=== PATIENT | female | born 1930 | race Two or more races ===

== ENCOUNTER 2017-01-01 10:49 | Day surgery (SDC) | payer MEDICARE, MEDICAID ==
[~2017-01-01 10:49] MED LIST: ALENDRONATE SOD70 MG ORAL; ARICEPT5 MG ORAL; LISINOPRIL40 MG ORAL; METFORMIN HCL500 M1 ORAL; NEXIUM40 M2 ORAL; OMEPRAZOLE40 M1 ORAL
--- NOTE | 2017-01-01 12:05 | Diagnostic Imaging Report ---
Indications: Left foot pain Technique: 3 views of the left foot Findings: Comparison: None. Soft tissues appear mildly swollen and irregular. No fracture, dislocation, lytic destruction, periosteal reaction, soft tissue gas or foreign body, or other acute changes are demonstrated. Small spurs emanate from the plantar and posterior aspects of the calcaneus. No additional deformity, alignment abnormality, arthritic change, soft tissue calcification, or other chronic changes are demonstrated. IMPRESSION: Mild soft tissue swelling/irregularity, nonspecific No other evidence of acute abnormality Calcaneal enthesophytes
--- NOTE | 2017-01-01 12:06 | Diagnostic Imaging Report ---
Indications: Right foot pain Technique: 3 views of the right foot Findings: Comparison: None. Soft tissues appear mildly swollen and irregular. No fracture, dislocation, lytic destruction, periosteal reaction, soft tissue gas or foreign body, or other acute changes are demonstrated. The second through fifth digital rays demonstrate mild alignment abnormalities. Small spurs emanate from the plantar and posterior aspects of the calcaneus. No additional deformity, alignment abnormality, arthritic change, soft tissue calcification, or other chronic changes are demonstrated. IMPRESSION: Mild soft tissue swelling/irregularity, nonspecific No other evidence of acute abnormality Second through fifth digital right alignment abnormalities, likely chronic Calcaneal enthesophytes
--- NOTE | 2017-01-04 08:48 | Diagnostic Imaging Report ---
Indications: Abdominal pain Technique: Continuous helical CT imaging of the abdomen and pelvis was performed with automatic exposure control following administration of oral and intravenous nonionic iodine contrast, on a Siemens sensation [address] scanner. Axial, coronal, and sagittal images were reconstructed at 5 mm slice thickness. CTDI volume(s): 20 mGy Total DLP: 954 mGy-cm Findings: Comparison: 04/20/2014 Oral contrast has passed throughout the gastrointestinal tract to the level of the rectum. Entire tract remains nondilated. Appendix not identified. Multiple left colonic diverticula. No obvious associated mass/mural thickening, adjacent stranding, extraluminal gas or fluid collections. Again noted are mildly decreased attenuation of liver parenchyma, one centimeters circumscribed low-attenuation exophytic mass lower pole right kidney, scattered arterial mural calcifications without obvious flow-limiting stenosis or occlusion, small calcified nodule in the left lung base, subsegmental atelectasis versus scarring in right lung base, increased interstitial markings in the dependent portions of both lung bases, multilevel disc space narrowing with marginal osteophyte formation in the lumbar and lower thoracic spine, extensive fusion hardware in the lumbar spine, calcified nodules compatible with injection granulomas in the bilateral buttock subcutaneous soft tissues, all unchanged. Gallbladder, pancreas, spleen, adrenal glands, right kidney, unopacified ureters and collapsed urinary bladder, uterus, bilateral adnexal regions, retroperitoneum, mesentery, remainder visualized pelvic anatomy remain unremarkable in appearance. 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
== END 2017-01-01 12:50 | disposition home or self-care (01) ==
LOC: RAD 10:49 → SUR 10:49
DX: R19.00 Intra-abdominal and pelvic swelling, mass and lump, unspecified site (principal); N28.1 Cyst of kidney, acquired; K76.0 Fatty (change of) liver, not elsewhere classified; K57.30 Diverticulosis of large intestine without perforation or abscess without bleeding; M47.895 Other spondylosis, thoracolumbar region; J84.10 Pulmonary fibrosis, unspecified; M79.672 Pain in left foot; M79.671 Pain in right foot; M77.32 Calcaneal spur, left foot; M77.31 Calcaneal spur, right foot
CPT/HCPCS: 74177

== ENCOUNTER 2017-03-02 14:24 | Inpatient (IN) | payer MEDICARE, MEDICAID ==
[~2017-03-02] VITALS: Ht 144.8 cm; Wt 70.8 kg
[2017-03-02] MEDS ORDERED: Morphine Sulfate 4mg/ml Inj IVP ONE ×3 (15:15→18:30)
[2017-03-02 15:52] VITALS: BP 142/74
[2017-03-02] MEDS ORDERED: Norco 10mg/325mg tab ORAL PRN (16:15)
[2017-03-02 16:30] VITALS: BP 144/71
--- NOTE | 2017-03-02 16:45 | Diagnostic Imaging Report ---
Indication: Leg pain Technique: Continuous helical transaxial imaging of the pelvis was obtained from the iliac crest to the pubic symphysis. Coronal 2-D reformats were also obtained. Study obtained in a Siemens sensation [address] Intravenous non-ionic contrast was administered. Total Dose length Product (DLP): [address] Dose Index Volume (CTDIvol): 19 mGy Comparison: None Findings: Due to fracture is identified. The bones are osteopenic. A alignment is normal. Extensive diverticulosis of the colon demonstrated. Uterus noted. Bladder is nondistended. Arterial vascular calcifications are present. Lumbar spine as discussed in a separately dictated lumbar spine CT report. Impression: No acute injury identified. Please refer to the lumbar spine CT report The CT scanner at [facility] is accredited by the [employer] and the scans are performed using dose optimization techniques as appropriate to a performed exam including Automatic Exposure control.
[2017-03-02 16:49] LABS: BASOPHILS % (AUTO) 2.1 % (0.0-2.0); EOSINOPHILS % (AUTO) 0.9 % (0.0-3.0); LYMPHOCYTES % (AUTO) 25.5 % (20.0-45.0); MEAN CORPUSCULAR HGB CONC 34.7 G/DL (32.0-36.0); MEAN CORPUSCULAR VOLUME 89 FL (80-99); MEAN PLATELET VOLUME 7.8 FL (6.5-10.1); MONOCYTES % (AUTO) 5.9 % (1.0-10.0); NEUTROPHILS % (AUTO) 65.6 % (45.0-75.0); PLATELET COUNT 348 K/UL (150-450); RED BLOOD COUNT 5.05 M/UL (4.20-5.40); RED CELL DISTRIBUTION WIDTH 13.8 % (11.6-14.8); WHITE BLOOD COUNT 7.9 K/UL (4.8-10.8)
[2017-03-02 16:58] LABS: ALANINE AMINOTRANSFERASE 5 U/L (3-33); ALBUMIN/GLOBULIN RATIO 1.4 (1.0-2.7); ANION GAP 15 (5-15); ASPARTATE AMINO TRANSFERASE 17 U/L (5-40); CALCIUM 10.3 mg/dL (8.6-10.2); CARBON DIOXIDE 27 mEQ/L (20-30); CHLORIDE 97 mEQ/L (98-107); CREATININE 0.7 mg/dL (0.5-0.9); HEMOLYSIS 6; POTASSIUM 3.9 mEQ/L (3.4-4.9); SODIUM 139 mEQ/L (135-145); TOTAL PROTEIN 7.8 g/dL (6.6-8.7)
[2017-03-02 17:30] VITALS: BP 129/81
--- NOTE | 2017-03-02 18:10 | Emergency Room Report ---
History of Present Illness General Chief Complaint: Lower Back Pain or Injury Source: Significant Other Present Illness HPI 86-year-old female presents ED complaining of back pain x2 weeks. Daughter is at bedside states that patient has history of chronic back pain and has had multiple surgeries to her back. Unsure whether patient sustained any recent trauma. Patient does not recall. Pain is a 10 out of 10, throbbing, radiating down the left leg. Patient states she is unable to bear weight. PMD is Dr. Palomares. No other aggravating or relieving factors. Denies any other associated symptoms Allergies: Coded Allergies: SALICYLATES (Verified Allergy, Mild, 04/16/09) ACETAMINOPHEN (Verified Adverse Reaction, Mild, VOMITING, 03/31/12) ASPIRIN (Verified Adverse Reaction, Mild, STOMACH PAIN, 03/31/12) CODEINE (Verified Adverse Reaction, Mild, VOMITING, 03/31/12) Patient History Past Medical History: DM, HTN Past Surgical History: none Pertinent Family History: none Social History: Denies: alcohol use, drug use, smoking Now: No Immunizations: UTD Reviewed Nursing Documentation: PMH: Agreed, PSxH: Agreed Nursing Documentation-PMH Hx Hypertension: Yes Hx Diabetes: Yes Hx Cancer: No Hx Gastrointestinal Problems: Yes - GASTRITIS Hx Neurological Problems: No Hx Neurologic Surgery: Yes - BACK SURGERY X4 Review of Systems All Other Systems: negative except mentioned in HPI Physical Exam Vital Signs Date Time Temp Pulse Resp B/P Pulse Ox O2 Delivery O2 Flow Rate FiO2 03/02/17 14:52 98.8 92 16 96 Room Air 03/02/17 15:52 142/74 Sp02 EP Interpretation: reviewed, normal General Appearance: no apparent distress, alert, GCS 15, non-toxic Head: normocephalic Eyes: bilateral eye PERRL, bilateral eye normal inspection ENT: normal ENT inspection Neck: normal inspection Respiratory: normal inspection Cardiovascular #1: normal inspection Gastrointestinal: normal inspection Rectal: deferred Genitourinary: no CVA tenderness, vertebral tenderness Musculoskeletal: tender Neurologic: alert, oriented x3, responsive, motor strength/tone normal, sensory intact, speech normal Psychiatric: normal inspection Skin: normal inspection Lymphatic: normal inspection Medical Decision Making Diagnostic Impression: Primary Impression: Intractable low back pain Additional Impression: Gait instability ER Course Hospital Course 86-year-old female presents to ED with back pain, radiating down left leg Differential diagnoses include: SBO, aortic dissection, pyelonephritis, kidney stone, Clinical course Patient placed on stretcher. telemetry monitor. After initial history and physical I ordered labs, IV fluids, UA, pain medication and CT scan Labs - no leukocytosis, Hb/Hct stable. electrolytes ok. CT pelvis -no acute process CT Lspine - extensive DJD, hardware in place Patient given pain medications but still continues to have pain and unable to walk Case discussed with Dr. Palomares and he agreed to accept the patient to his service for further care and support I feel this is a highly complex case requiring extensive working including EKG/ Rhythm strip, Xray/CT/US, Blood/urine lab work, repeat exams while in ED, and administration of strong opiates/narcotics for pain control, admission to hospital or close patient follow up. Diagnosis -intractable back pain, gait instability Patient admitted to floor in serious condition Labs Test 03/02/17 15:56 White Blood Count 7.9 K/UL (4.8-10.8) Red Blood Count 5.05 M/UL (4.20-5.40) Hemoglobin 15.7 G/DL (12.0-16.0) Hematocrit 45.2 % (37.0-47.0) Mean Corpuscular Volume 89 FL (80-99) Mean Corpuscular Hemoglobin 31.0 PG (27.0-31.0) Mean Corpuscular Hemoglobin Concent 34.7 G/DL (32.0-36.0) Red Cell Distribution Width 13.8 % (11.6-14.8) Platelet Count 348 K/UL (150-450) Mean Platelet Volume 7.8 FL (6.5-10.1) Neutrophils (%) (Auto) 65.6 % (45.0-75.0) Lymphocytes (%) (Auto) 25.5 % (20.0-45.0) Monocytes (%) (Auto) 5.9 % (1.0-10.0) Eosinophils (%) (Auto) 0.9 % (0.0-3.0) Basophils (%) (Auto) 2.1 % (0.0-2.0) Sodium Level 139 mEQ/L (135-145) Potassium Level 3.9 mEQ/L (3.4-4.9) Chloride Level 97 mEQ/L (98-107) Carbon Dioxide Level 27 mEQ/L (20-30) Anion Gap 15 (5-15) Blood Urea Nitrogen 17 mg/dL (7-23) Creatinine 0.7 mg/dL (0.5-0.9) Estimat Glomerular Filtration Rate mL/min (>60) Glucose Level 140 mg/dL (74-106) Calcium Level 10.3 mg/dL (8.6-10.2) Total Bilirubin 0.3 mg/dL (0.0-1.2) Aspartate Amino Transf (AST/SGOT) 17 U/L (5-40) Alanine Aminotransferase (ALT/SGPT) 5 U/L (3-33) Alkaline Phosphatase 111 U/L (35-104) Total Protein 7.8 g/dL (6.6-8.7) Albumin 4.6 g/dL (3.5-5.2) Globulin 3.2 g/dL Albumin/Globulin Ratio 1.4 (1.0-2.7) CT/MRI/US Diagnostic Results CT/MRI/US Diagnostic Results #1: Imaging Test Ordered: CT Lspine Impression Bilateral pedicle screws and fusion rods L2-S1. Large anterior vertebral screw at L4-L5 and at L5-S1. Extensive disc disease. No acute fractures CT/MRI/US Diagnostic Results #2: Imaging Test Ordered: CT Pelvis Impression no acute fx. Last Vital Signs Date Time Temp Pulse Resp B/P Pulse Ox O2 Delivery O2 Flow Rate FiO2 03/02/17 17:13 98.8 03/02/17 15:52 69 16 142/74 96 Room Air Status: improved Disposition: ADMITTED INPATIENT Condition: Serious Referrals: JONY PALOMARES (PCP) DORIAN MAURO M.D. Mar 02, 2017 18:10
[2017-03-02 18:15] VITALS: BP 113/67
[2017-03-02] MEDS: Lisinopril 20mg tab ORAL SCH (20:09)
[2017-03-02] MEDS: Heparin 5000 units/ml inj SUBQ SCH (20:14)
[2017-03-02] MEDS: NovoLOG Insulin Flexpen SUBQ SCH (20:15)
[2017-03-03 00:23] VITALS: BP 159/71
[2017-03-03] MEDS: Morphine Sulfate 2mg/ml Inj IVP PRN ×4 (00:36→21:04)
[2017-03-03 04:55] VITALS: BP 158/77
[2017-03-03] MEDS: NovoLOG Insulin Flexpen SUBQ SCH ×4 (05:49→20:53)
[2017-03-03] MEDS: metFORMIN 500mg tab ORAL SCH (08:26)
[2017-03-03] MEDS: Lisinopril 20mg tab ORAL SCH ×2 (08:26→21:04)
[2017-03-03] MEDS: Heparin 5000 units/ml inj SUBQ SCH ×2 (08:27→21:11)
--- NOTE | 2017-03-03 08:47 | Diagnostic Imaging Report ---
Indication: Back pain Technique: Continuous helical transaxial imaging of the lumbar spine was obtained from the lung bases to the pubic symphysis. No IV contrast was administered. Coronal 2-D reformats were also obtained. Study obtained in a Siemens sensation [address] Total Dose length Product (DLP): [address] Dose Index Volume (CTDIvol): 24 mGy Comparison: None Findings: There is some limitation on this examination because of streak artifact from hardware which consists of bilateral pedicle screws and fusion rods which spans L2-S1. In addition there is a large intervertebral screw traversing at L4-5 and L5-S1. There is generalized osteopenia. There is extensive disc disease with vacuum phenomenon involving the upper lumbar and lower thoracic spine. Grafted bone material noted posteriorly. There is no obvious fracture identified with obvious limitations given the degree of osteopenia present in the artifact associated with the hardware. There is no large hematoma identified. Aorta is moderately calcified. Extensive diverticulosis of the colon noted. Impression: No obvious acute injury. Limitations given the artifact from L2-S1 fusion hardware. Degenerative changes as described above. Osteoporosis Atherosclerotic vascular disease Extensive diverticulosis of the visualized colon The CT scanner at [facility] [place] [facility] is accredited by the [employer] and the scans are performed using dose optimization techniques as appropriate to a performed exam including Automatic Exposure control.
[2017-03-03 08:53] VITALS: BP 142/65
[2017-03-03 12:00] VITALS: BP 146/59
[2017-03-03 16:35] VITALS: BP 139/63
--- NOTE | 2017-03-03 18:12 | Consultation ---
Consult Note Consult Note full note dictated Assessment/Plan MRi T and L spine antiviral RX and TITI Conrad Mar 03, 2017 18:12
[2017-03-03] MEDS: Milk of Magnesia 30ml Ud ORAL PRN (18:25)
[2017-03-03 20:00] VITALS: BP 156/72
--- NOTE | 2017-03-03 21:40 | History and Physical Report ---
DATE OF ADMISSION: 03/02/2017 CHIEF COMPLAINT: Intractable back pain. HISTORY OF PLEASANT ILLNESS: The patient is a very pleasant 86-year-old female. She has a history of hypertension, diabetes, obesity, and osteoarthritis. She has a prior history of multiple back surgeries. She presented with complaints of one to two days of intractable back pain. According to the patient, she was well until several days prior to admission. She has had worsening back pain. She denies any trauma. No heavy lifting. No falls. She is normally on [place] for pain control, but the pain was intractable. The patient was unable to ambulate because her pain was uncontrolled. She required IV pain medication in the emergency room and she is now admitted for further evaluation and care. She denies any focal weakness and numbness. She has had no incontinence. She does admit there area some problems with her ambulation, but is unclear whether this is due to the pain or muscular weakness. PAST MEDICAL HISTORY: As above. PAST SURGICAL HISTORY: Includes knee replacement surgery and back surgery. CURRENT MEDICATIONS: Reconciled and reviewed. ALLERGIES: Include Tylenol, codeine, aspirin, and NSAIDs. FAMILY HISTORY: Noncontributory. SOCIAL HISTORY: Negative for tobacco, ethanol, or drugs. REVIEW OF SYSTEMS: General: No fever or chills. HEENT: No headaches or visual changes. Cardiopulmonary: No chest pain or shortness of breath. Gastrointestinal: No nausea or vomiting. Genitourinary: No urgency or frequency. Musculoskeletal: Possible back pain. Neurologic: No evidence of seizures. PHYSICAL EXAMINATION: VITAL SIGNS: Temperature 96, blood pressure 113/67, pulse 74, and respirations 20. GENERAL: The patient is well-developed female in no apparent distress. HEART: Regular rate and rhythm. LUNGS: Lungs are clear. ABDOMEN: Soft, nontender, and nondistended. EXTREMITIES: No clubbing, cyanosis, or edema. The patient's midline lumbar incision that is old. NEUROLOGIC: The patient is nonfocal. LABORATORY AND DIAGNOSTIC DATA: CT scan of the lumbar region shows L2-S1 fusion. CT of the pelvis was unremarkable. ASSESSMENT: 1. This is a pleasant female intractable low back pain. 2. Diabetes. 3. Hypertension. 4. History of diastolic congestive heart failure. PLAN: IV pain control. Upon evaluation. We will continue outpatient cardiac and diabetic regimen, PT/OT. Zachary Wu M.D. DR: PRISCA JOB#: [id number] CC:
[2017-03-04] VITALS (8 sets, daily range): BP systolic 114–175; BP diastolic 52–92
--- NOTE | 2017-03-04 01:15 | Consultation ---
DATE OF CONSULTATION: SPINE SURGICAL CONSULTATION REASON FOR CONSULTATION: Back pain, right lower extremity radiation and left flank pain. HISTORY OF PRESENT ILLNESS: The patient is an 86-year-old woman, well known to myself. She had previously undergone multiple back surgeries resulting in a spinal fusion L2 through S1. The last surgery was approximately nine years ago. Over the course of the last nine years, she has been in relatively stable and good health as it relates to her back, she would have occasional flare ups, however, over the last three weeks, she has had severe onset of pain in her lower back with burning dysesthesias down the right leg. This has been associated with puffiness as well as having broken out in a rash and blisters down the right leg into the right foot. She also experiences pain in the upper mid back with radiation to the left flank. She was admitted to the hospital due to intractable pain. PAST MEDICAL HISTORY: Diabetes, hypertension and obesity. PAST SURGICAL HISTORY: As noted above. MEDICATIONS: The medication reconciliation report in the chart. ALLERGIES: Tylenol, aspirin, codeine and salicylates, unknown reaction type. PHYSICAL EXAMINATION: GENERAL: The patient is elderly woman, obese. She is seated at the edge of the bed. BACK: Examination of the back demonstrates a well-healed incision. There is tenderness at the thoracolumbar junction with hyperesthesias on the left side into the left flank at about the T8 through T12 distribution. Formal range of motion of lumbar spine was not performed. NEUROLOGIC: Motor strength testing was difficult to assess due to pain in the right lower extremity primarily, but not the left. There are well-healed vesicles along the plantar and medial aspect of the right foot consistent with mature shingles. There are two more fresh appearing blistering along the anterior tibia. Reflexes not performed. She does have exquisite hyperesthesias in the right lower extremity in the L5 distribution. LABORATORY AND DIAGNOSTIC DATA: CT of the lumbar spine reviewed demonstrating spinal fusion L2 through S1 performed through a combination of anterior fixation and posterior fixation. Hardware appears to be in good position and fusion is solid. There is vacuum phenomenon at T12-L1, L1-L2 and L2-L3 proximal, this cannot be adequately visualized. DIAGNOSES: 1. Status post prior spinal fusion L2 through S1. 2. Left flank radiculopathy, rule out disc protrusion and/or foraminal stenosis. 3. Proximal adjacent level arthropathy. 4. 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 PLAN: I had a discussion with Dr. Wu. I recommended antiviral as well as Lyrica for pain control. I will also order an MRI of the thoracic and lumbar spine to rule out structural compression of the nerve in the thoracolumbar junction. [facility] Alexey Méndez DR: RADHA JOB#: [id number] CC:
[2017-03-04] MEDS: Morphine Sulfate 2mg/ml Inj IVP PRN ×4 (02:07→18:31)
[2017-03-04] MEDS: NovoLOG Insulin Flexpen SUBQ SCH ×4 (06:20→20:22)
[2017-03-04] MEDS: Lisinopril 20mg tab ORAL SCH ×2 (08:58→20:26)
[2017-03-04] MEDS: metFORMIN 500mg tab ORAL SCH (08:59)
[2017-03-04] MEDS: Heparin 5000 units/ml inj SUBQ SCH ×2 (10:13→20:29)
--- NOTE | 2017-03-04 10:58 | Diagnostic Imaging Report ---
Indications: Chronic back pain, history of multiple lumbar surgeries Technique: Sagittal STIR, sagittal and axial T1 and T2 weighted fast spin echo sequences of the thoracic spine were performed without IV or intra-thecal gadolinium administration. Findings: Comparison: None The T1-2 disc is mildly decreased in height with mild diffuse annular bulge gently indenting the ventral surface of thecal sac. Facet joints and ligaments unremarkable. Spinal canal, lateral recesses and neural foramina caliber. The T2-3 through T8-9 discs are normal in height. Mild anterior annular bulges. No significant posterior margin disease. Facet joints and ligaments unremarkable. Spinal canal, lateral recesses and neural foramina normal caliber. The T9-10 disc is decreased in height with mild diffuse annular bulge centrally indenting the ventral surface of thecal sac. Left facet joints and ligaments mildly hypertrophied, gently indenting the left lateral margin of the thecal sac and contributing to mild narrowing of the left neural foramen. Right facet joints and ligaments unremarkable. Spinal canal, lateral recesses, right neural foramen normal caliber. The T10-11 disc is decreased in height with circumferential annular bulge indenting the ventral surface of thecal sac. Facet joints and ligaments mildly hypertrophied. Approximately 2 x 1 x 1.5 cm hypointense mass occupies obliterates the left lateral recess at this level, extending medially to compress the left lateral margin of the thecal sac, focally abutted and displaced rightward spinal cord, also extending into and obliterating the left neural foramen. This mass appears contiguous with both the intervertebral disc and facet joint. Spinal canal narrowed to 8 mm AP diameter.. Right lateral recess and neural foramen mildly narrowed. The T11-12 disc is decreased in height with circumferential annular bulge and marginal osteophyte formation, indenting the ventral surface of thecal sac. Facet joints mildly diastatic and fluid-filled. Ligaments mildly hypertrophied. Lateral recesses mildly, neural foramina severely narrowed bilaterally. The T12-L1 disc is decreased in formation, indenting the ventral surface of the thecal sac. Facet joints slightly diastatic and fluid-filled. Ligaments mildly hypertrophied. Spinal canal narrowed to 8 mm AP diameter. Lateral recesses and neural foramina moderately narrowed bilaterally. Spinal cord demonstrates normal configuration and signal characteristics. No intra-axial mass or other signal change. Thoracic vertebrae demonstrate normal configuration and signal characteristics, aside from degenerative changes described above. No fracture, lytic destruction, or other acute change demonstrated. Paraspinous soft tissues are unremarkable. IMPRESSION: Multilevel degenerative disc disease, facet and ligamentous hypertrophy as described in detail level by level above. Associated mass obliterating left lateral recess and neural foramen at T10-11. Focal abutment and rightward displacement spinal cord. Whether this represents extruded disc, marked facet/ligamentous hypertrophy, or a combination cannot be differentiated. Moderate spinal stenosis at T10-11, T12-L1 Severe narrowing of bilateral neural foramina at T11-12 Moderate lateral recess and neural foraminal narrowing bilaterally at T12-L1
--- NOTE | 2017-03-04 14:36 | General Progress Note ---
Assessment/Plan Problem List: (1) Gastroenteritis ICD Codes: K52.9 - Gastroenteritis SNOMED: 15916641 (2) Gait instability ICD Codes: R26.81 - Unsteadiness on feet SNOMED: 32115312, 701379477 (3) Intractable low back pain ICD Codes: M54.5 - Low back pain SNOMED: [id number] Status: stable Assessment/Plan spine follow up regarding spine mass. ?malignancy pain rx dvt/stress ulcer prophylaxis id eval regarding shingles d/w dtr ada Subjective ROS Limited/Unobtainable: No Constitutional: Reports: malaise, weakness HEENT: Reports: no symptoms Cardiovascular: Reports: no symptoms Respiratory: Reports: no symptoms Gastrointestinal/Abdominal: Reports: no symptoms Genitourinary: Reports: no symptoms Neurologic/Psychiatric: Reports: no symptoms Endocrine: Reports: no symptoms Hematologic/Lymphatic: Reports: no symptoms Allergies: Coded Allergies: SALICYLATES (Verified Allergy, Mild, 04/16/09) ACETAMINOPHEN (Verified Adverse Reaction, Mild, VOMITING, 03/31/12) ASPIRIN (Verified Adverse Reaction, Mild, STOMACH PAIN, 03/31/12) CODEINE (Verified Adverse Reaction, Mild, VOMITING, 03/31/12) All Systems: reviewed and negative except above Subjective still having severe back pain. on iv morphine. ?mass. no fever or chills. no focal weakness Objective Last 24 Hour Vital Signs Date Time Temp Pulse Resp B/P Pulse Ox O2 Delivery O2 Flow Rate FiO2 03/04/17 12:00 97.8 69 15 140/69 95 Room Air 03/04/17 08:58 114/52 03/04/17 08:00 97.8 69 15 140/69 95 Room Air 03/04/17 06:56 98.2 03/04/17 06:29 78 114/52 03/04/17 05:09 164/70 03/04/17 04:43 98.2 85 20 164/77 92 Room Air 03/04/17 00:50 76 146/92 03/04/17 00:20 97.9 83 21 175/74 92 Room Air 03/03/17 21:04 139/63 03/03/17 20:00 98.1 73 22 156/72 92 Room Air 03/03/17 16:35 97.5 70 18 139/63 96 Room Air Height (Feet): 4 Height (Inches): 9.00 Weight (Pounds): 156 General Appearance: WD/WN, alert Neck: supple Cardiovascular: normal rate, regular rhythm Respiratory/Chest: chest wall non-tender, lungs clear, normal breath sounds, no respiratory distress Abdomen: normal bowel sounds, non tender, soft, no organomegaly, no mass Edema: no edema noted Arm (L), no edema noted Arm (R), no edema noted Leg (L), no edema noted Leg (R), no edema noted Pedal (L), no edema noted Pedal (R), no edema noted Generalized JONY PALOMARES Mar 04, 2017 14:36
--- NOTE | 2017-03-04 17:08 | Orthopedic Spine Progress Note ---
Ortho Spine - Progress Note Subjective Symptoms: improved Additional Comments: R leg and l flank Pain better MRI T spine reviewed-- L T10-11 severe, and L t 11-12 Mod NF stenosis. No sig cord compression Objective Vital Signs: Last 24 Hour Vital Signs Date Time Temp Pulse Resp B/P Pulse Ox O2 Delivery O2 Flow Rate FiO2 03/04/17 16:00 97.8 72 15 142/63 95 Room Air 03/04/17 14:42 97.8 03/04/17 12:00 97.8 69 15 140/69 95 Room Air 03/04/17 08:58 114/52 03/04/17 08:00 97.8 69 15 140/69 95 Room Air 03/04/17 06:29 78 114/52 03/04/17 05:09 164/70 03/04/17 04:43 98.2 85 20 164/77 92 Room Air 03/04/17 00:50 76 146/92 03/04/17 00:20 97.9 83 21 175/74 92 Room Air 03/03/17 21:04 139/63 03/03/17 20:00 98.1 73 22 156/72 92 Room Air Plan Plan: PT, pain management Additional Comments: Obtain L spine MRI consider T10-12 L TSEB cont lyrica/acyclovir TITI MCDOWELL Mar 04, 2017 17:08
[2017-03-04] MEDS: Docusate 250mg cap ORAL SCH (18:21)
[2017-03-04] MEDS: Norco 10mg/325mg tab ORAL PRN (20:25)
[2017-03-05] VITALS: BP 139/54
[2017-03-05] MEDS: Morphine Sulfate 2mg/ml Inj IVP PRN ×4 (03:55→18:21)
[2017-03-05 04:00] VITALS: BP 137/68
--- NOTE | 2017-03-05 04:45 | Consultation ---
DATE OF CONSULTATION: 03/04/2017 INFECTIOUS DISEASE CONSULTATION PRIMARY ATTENDING PHYSICIAN: Zachary Wu M.D. REASON FOR CONSULTATION: Herpes Zoster and shingles. HISTORY OF PRESENT ILLNESS: The patient is an 86-year-old female admitted on 03/02/2017 because of back pain. The patient has lower back pain for a few weeks that is radiating to right lower extremity. She had developed burning pain and rash in the right lower extremity, mainly in inner foot area. that gradually are better. PAST MEDICAL HISTORY: Significant for multiple back surgeries with fusion at L2 through S1, obesity, diabetes mellitus, hypertension, osteoarthritis, osteoporosis, and knee replacement surgery. The patient had colonoscopy and had tubular adenoma that was removed. MEDICATIONS: Alendronate, milk of magnesia, [place], metformin, Percocet, morphine, lisinopril, insulin, and heparin. ALLERGIES: Aspirin, codeine, salicylate, and Tylenol. SOCIAL HISTORY: . Lives with . No history of alcohol, drug abuse, or smoking. REVIEW OF SYSTEMS: No fever. No chills. She does have back pain. No significant pain in the lower extremity. She has good appetite. No urinary symptoms. She can go to bathroom by herself. PHYSICAL EXAMINATION: VITAL SIGNS: Temperature 97.8 degrees, pulse 69, and blood pressure 140/69. GENERAL APPEARANCE: No acute distress. HEART: S1 and S2. Regular. LUNGS: Clear. ABDOMEN: Soft. Obese EXTREMITIES: No edema, vesicular rash in right foot. LABORATORY AND DIAGNOSTIC DATA: Sodium 139, potassium 3.9, chloride 97, bicarbonate 27, BUN 17 and creatinine 0.7. WBC is 7.9, hemoglobin 15.7, hematocrit 45.6, and platelets 348,000. The patient had MRI that showed osteoporosis, multiple level spinal stenosis in thoracic and thoracolumbar area. She has also CT scan that showed diverticulosis. IMPRESSION: 1. Herpes Zoster right lower extremity. 2. The patient has diabetes mellitus. 3. Obesity. 4. Hypertension. 5. Osteoarthritis. 6. Osteoporosis. 7. Spinal stenosis. RECOMMENDATION: We will start on acyclovir. Case was discussed with pharmacist. Waiting for Orthopedic plan for the patient. I thank, Dr. Wu, for involving me in the care of this patient. Jagjit Mari M.D. DR: SINDY JOB#: [id number] CC: MARGARET
[2017-03-05] MEDS: NovoLOG Insulin Flexpen SUBQ SCH ×4 (06:25→21:00)
[2017-03-05] MEDS: Milk of Magnesia 30ml Ud ORAL PRN (06:30)
[2017-03-05 08:00] VITALS: BP 160/62
[2017-03-05] MEDS: metFORMIN 500mg tab ORAL SCH (09:08)
[2017-03-05] MEDS: Lisinopril 20mg tab ORAL SCH ×2 (09:08→21:26)
[2017-03-05] MEDS: Docusate 250mg cap ORAL SCH ×2 (09:08→18:21)
[2017-03-05] MEDS: Heparin 5000 units/ml inj SUBQ SCH ×2 (09:15→21:29)
[2017-03-05 12:00] VITALS: BP 141/64
--- NOTE | 2017-03-05 13:00 | Infectious Diseases Prog Note ---
Assessment/Plan Assessment/Plan A; Herpes zoster Spinal stenosis DM type 2 Obesity P; Continue Acyclovir Subjective ROS Limited/Unobtainable: No Constitutional: Reports: no symptoms HEENT: Reports: no symptoms Cardiovascular: Reports: no symptoms Musculoskeletal: Reports: other - back pain with radiation to right leg, pain Allergies: Coded Allergies: SALICYLATES (Verified Allergy, Mild, 04/16/09) ACETAMINOPHEN (Verified Adverse Reaction, Mild, VOMITING, 03/31/12) ASPIRIN (Verified Adverse Reaction, Mild, STOMACH PAIN, 03/31/12) CODEINE (Verified Adverse Reaction, Mild, VOMITING, 03/31/12) Objective Vital Signs Last 24 Hour Vital Signs Date Time Temp Pulse Resp B/P Pulse Ox O2 Delivery O2 Flow Rate FiO2 03/05/17 12:00 97.7 74 18 141/64 98 Room Air 03/05/17 09:08 160/62 03/05/17 08:00 98.6 90 19 160/62 94 Room Air 03/05/17 04:00 97.7 79 18 137/68 96 Room Air 03/05/17 00:00 97.9 80 18 139/54 94 Room Air 03/04/17 21:24 97.7 03/04/17 20:26 141/55 03/04/17 19:57 97.7 72 18 141/55 96 Room Air 03/04/17 19:01 97.8 03/04/17 16:00 97.8 72 15 142/63 95 Room Air Height (Feet): 4 Height (Inches): 9.00 Weight (Pounds): 156 General Appearance: no acute distress HEENT: mucous membranes moist Respiratory/Chest: lungs clear Cardiovascular: normal rate Abdomen: soft, non tender Extremities: no edema Neurologic/Psychiatric: alert, oriented x 3, responsive Current Medications Medications (Trade) Dose Ordered Sig/Ashlie Route PRN Reason Start Time Stop Time Status Last Admin Dose Admin Acetaminophen/ Hydrocodone Bitart ([place] 10/325) 1 ea Q4H PRN ORAL For Breakthru Pain 03/03/17 15:00 03/10/17 14:59 03/04/17 20:25 Acyclovir (Zovirax) 800 mg FIVE TIMES A DAY ORAL 03/04/17 14:00 04/03/17 13:59 03/05/17 10:21 Alendronate Sodium (Fosamax) 70 mg ONCE A WEEK ORAL 03/08/17 06:30 04/07/17 06:29 Clonidine HCl (Catapres) 0.1 mg Q4H PRN ORAL For High Blood Pressure 03/02/17 22:15 04/01/17 22:14 03/04/17 05:09 Dextrose (Dextrose 50%) STAT PRN IV Hypoglycemia 03/02/17 16:15 04/01/17 16:14 Docusate Sodium (Colace) 250 mg BID ORAL 03/04/17 18:00 04/03/17 17:59 03/05/17 09:08 Heparin Sodium (Porcine) (Heparin 5000 units/ml) 5,000 units EVERY 12 HOURS SUBQ 03/02/17 21:00 04/01/17 20:59 03/05/17 09:15 Insulin Aspart (NovoLOG) BEFORE MEALS AND HS SUBQ 03/02/17 21:00 04/01/17 20:59 03/04/17 12:47 Lisinopril (Prinivil) 40 mg Q12HR ORAL 03/02/17 21:00 04/01/17 20:59 03/05/17 09:08 Magnesium Hydroxide (Mom) 30 ml TID PRN ORAL Constipation 03/03/17 20:00 04/02/17 19:59 03/05/17 06:30 Metformin HCl (Glucophage) 500 mg DAILY ORAL 03/03/17 09:00 04/02/17 08:59 03/05/17 09:08 Morphine Sulfate (Morphine Sulfate) 1 mg Q4H PRN IVP Severe Pain (Pain Scale 7-10) 03/02/17 22:15 03/09/17 22:14 03/05/17 09:08 Oxycodone/ Acetaminophen (Percocet 10/325) 1 tab Q6H PRN ORAL Moderate Pain (Pain Scale 4-6) 03/03/17 01:15 03/10/17 01:14 Pantoprazole (Protonix) 40 mg DAILY ORAL 03/03/17 09:00 04/02/17 08:59 03/05/17 09:08 SUDHIR WOOTEN Mar 05, 2017 13:00
--- NOTE | 2017-03-05 13:30 | Diagnostic Imaging Report ---
Indication: Low back pain, history of multiple lumbar surgeries Technique: Sagittal T1 and T2 fast spin echo, sagittal STIR, axial T1 and T2 fast spin-echo images of the lumbar spine Comparison: Lumbar spine CT dated 03/02/2017 Findings: Again demonstrated is evidence of posterior fusion of L2-S1. There is also a large intervertebral surgical screw fusing the S1, L5, and L4 vertebral bodies. The hardware shows off susceptibility artifact which may obscure pathology. Prior bone grafting is better demonstrated on the prior CT. The bony alignment is normal. To the extent visible, the vertebral body marrow signal is normal. The conus medullaris terminates at the L1 level. At T12-L1, there is generalized circumferential annular bulge. This results in mild narrowing of the spinal canal, which is narrowed to a minimum of 8 mm AP diameter. This also results in mild to moderate compromise the bilateral neural foramina. There is mild degenerative disc narrowing at this level, as well as disc desiccation At L1-L2, there is moderate degenerative disc narrowing. There is generalized circumferential annular bulge. In combination with ligamentum flavum hypertrophy, this results in borderline spinal canal stenosis. The spinal canal is also distorted by mild levoscoliotic deformity at this level. There is moderate narrowing of the bilateral neural foramina, worse on the right. This is better appreciated on recent CT. At L2-3, no significant disc bulge or protrusion or spinal stenosis. The neural foramina are not well limited due to artifacts, there are probably unremarkable and appear unremarkable on CT there is moderate degenerative disc narrowing. At L3-4, the disc space is preserved. No significant distal or protrusion or spinal stenosis. The left foramen appears widely patent. The right neural foramen is not well demonstrated; sagittal images suggest moderate narrowing but appears widely patent on CT. At L4-5, the disc is obscured by artifact from the central prosthesis. No disc bulge or protrusion or spinal stenosis is demonstrated. Artifact also obscures the left neural foramen. The right neural foramen appears to be patent. At L5-S1, there is degenerative disc narrowing. However, the disc is obscured by artifact from the central prosthesis. There is minimal circumferential annular bulge, but no significant disc protrusion or spinal stenosis is evident. The annular bulge may result in mild bilateral neural foraminal compromise. The surrounding soft tissues are unremarkable. Impression: Limited exam, due to artifact from surgical hardware, as described Postsurgical changes, as described. Degenerative changes, as described, resulting in mild spinal stenosis at T12-L1 and L1-L2 Multilevel neural foraminal stenoses, as detailed on a level by level basis above.
[2017-03-05] MEDS: Norco 10mg/325mg tab ORAL PRN (15:53)
--- NOTE | 2017-03-05 15:57 | General Progress Note ---
Assessment/Plan Problem List: (1) Gastroenteritis ICD Codes: K52.9 - Gastroenteritis SNOMED: 76044059 (2) Gait instability ICD Codes: R26.81 - Unsteadiness on feet SNOMED: 19107489, 712413004 (3) Intractable low back pain ICD Codes: M54.5 - Low back pain SNOMED: 02816034478711959 Assessment/Plan nerve block per spine pain rx dvt/stress ulcer prophylaxis id eval regarding shingles acyclovir for shingles rx pt/ot d/w dtr ada Subjective ROS Limited/Unobtainable: No Constitutional: Reports: malaise, weakness HEENT: Reports: no symptoms Cardiovascular: Reports: no symptoms Respiratory: Reports: no symptoms Gastrointestinal/Abdominal: Reports: no symptoms Genitourinary: Reports: no symptoms Neurologic/Psychiatric: Reports: no symptoms Endocrine: Reports: no symptoms Hematologic/Lymphatic: Reports: no symptoms Allergies: Coded Allergies: SALICYLATES (Verified Allergy, Mild, 04/16/09) ACETAMINOPHEN (Verified Adverse Reaction, Mild, VOMITING, 03/31/12) ASPIRIN (Verified Adverse Reaction, Mild, STOMACH PAIN, 03/31/12) CODEINE (Verified Adverse Reaction, Mild, VOMITING, 03/31/12) All Systems: reviewed and negative except above Subjective still having severe back pain. on iv morphine. large herniated disc on mri noted. no fever or chills. no focal weakness. Objective Last 24 Hour Vital Signs Date Time Temp Pulse Resp B/P Pulse Ox O2 Delivery O2 Flow Rate FiO2 03/05/17 12:00 97.7 74 18 141/64 98 Room Air 03/05/17 09:08 160/62 03/05/17 08:00 98.6 90 19 160/62 94 Room Air 03/05/17 04:00 97.7 79 18 137/68 96 Room Air 03/05/17 00:00 97.9 80 18 139/54 94 Room Air 03/04/17 21:24 97.7 03/04/17 20:26 141/55 03/04/17 19:57 97.7 72 18 141/55 96 Room Air 03/04/17 19:01 97.8 03/04/17 16:00 97.8 72 15 142/63 95 Room Air Intake and Output 03/04/17 03/05/17 19:00 07:00 Intake Total 240 ml Balance 240 ml Intake Oral 240 ml # Voids 2 # Bowel Movements 2 2 Height (Feet): 4 Height (Inches): 9.00 Weight (Pounds): 156 Objective General Appearance: WD/WN, alert Neck: supple Cardiovascular: normal rate, regular rhythm Respiratory/Chest: chest wall non-tender, lungs clear, normal breath sounds, no respiratory distress Abdomen: normal bowel sounds, non tender, soft, no organomegaly, no mass Edema: no edema noted Arm (L), no edema noted Arm (R), no edema noted Leg (L), no edema noted Leg (R), no edema noted Pedal (L), no edema noted Pedal (R), no edema noted Generalized JONY PALOMARES Mar 05, 2017 15:57
[2017-03-05 16:00] VITALS: BP 163/63
--- NOTE | 2017-03-05 18:41 | Orthopedic Spine Progress Note ---
Ortho Spine - Progress Note Subjective Symptoms: unchanged Additional Comments: L flank pain, R LE pain due to zoster Objective Vital Signs: Last 24 Hour Vital Signs Date Time Temp Pulse Resp B/P Pulse Ox O2 Delivery O2 Flow Rate FiO2 03/05/17 16:00 97.0 79 19 163/63 96 Room Air 03/05/17 12:00 97.7 74 18 141/64 98 Room Air 03/05/17 09:08 160/62 03/05/17 08:00 98.6 90 19 160/62 94 Room Air 03/05/17 04:00 97.7 79 18 137/68 96 Room Air 03/05/17 00:00 97.9 80 18 139/54 94 Room Air 03/04/17 21:24 97.7 03/04/17 20:26 141/55 03/04/17 19:57 97.7 72 18 141/55 96 Room Air 03/04/17 19:01 97.8 I&O: Intake and Output 03/04/17 03/05/17 19:00 07:00 Intake Total 240 ml Balance 240 ml Intake Oral 240 ml # Voids 2 # Bowel Movements 2 2 Neuro Status: stable Additional Comments: MRI Lspine and Tspine re reviewed Plan Additional Comments: No surgical intervention at this time. pain managmet as outpatient. Consider L T10/11/12 TSEB if pain not adequately controlled TITI MCDOWELL Mar 05, 2017 18:41
[2017-03-05 21:00] VITALS: BP 168/73
[2017-03-06] VITALS: BP 143/64
[2017-03-06] MEDS: Milk of Magnesia 30ml Ud ORAL PRN (00:33)
[2017-03-06] MEDS: Morphine Sulfate 2mg/ml Inj IVP PRN ×4 (00:36→18:29)
[2017-03-06 04:00] VITALS: BP 161/61
[2017-03-06] MEDS: NovoLOG Insulin Flexpen SUBQ SCH ×4 (06:30→21:00)
[2017-03-06 08:03] LABS: ANION GAP 15 (5-15); CALCIUM 9.9 mg/dL (8.6-10.2); CARBON DIOXIDE 26 mEQ/L (20-30); CHLORIDE 97 mEQ/L (98-107); CREATININE 0.6 mg/dL (0.5-0.9); HEMOLYSIS 5; POTASSIUM 4.2 mEQ/L (3.4-4.9); SODIUM 138 mEQ/L (135-145)
--- NOTE | 2017-03-06 08:17 | General Progress Note ---
Assessment/Plan Problem List: (1) Gastroenteritis ICD Codes: K52.9 - Gastroenteritis SNOMED: 32189585 (2) Gait instability ICD Codes: R26.81 - Unsteadiness on feet SNOMED: 57190843, 234934869 (3) Intractable low back pain ICD Codes: M54.5 - Low back pain SNOMED: [id number] Status: stable, progressing Assessment/Plan d/w . states pt declined nerve block but dtr states that she wants it now nerve block per spine- will d/w again pain rx dvt/stress ulcer prophylaxis acyclovir for shingles rx pt/ot d/w dtr ada Subjective ROS Limited/Unobtainable: No Constitutional: Reports: malaise, weakness HEENT: Reports: no symptoms Cardiovascular: Reports: no symptoms Respiratory: Reports: no symptoms Gastrointestinal/Abdominal: Reports: no symptoms Genitourinary: Reports: no symptoms Neurologic/Psychiatric: Reports: pre-existing deficit Endocrine: Reports: no symptoms Allergies: Coded Allergies: SALICYLATES (Verified Allergy, Mild, 04/16/09) ACETAMINOPHEN (Verified Adverse Reaction, Mild, VOMITING, 03/31/12) ASPIRIN (Verified Adverse Reaction, Mild, STOMACH PAIN, 03/31/12) CODEINE (Verified Adverse Reaction, Mild, VOMITING, 03/31/12) All Systems: reviewed and negative except above Subjective still having severe back pain. on iv morphine. large herniated disc on mri noted. no fever or chills. no focal weakness. requiring iv morphine nearly every 4 hours. Objective Last 24 Hour Vital Signs Date Time Temp Pulse Resp B/P Pulse Ox O2 Delivery O2 Flow Rate FiO2 03/06/17 04:40 161/61 03/06/17 04:00 98.2 96 18 161/61 95 Room Air 03/06/17 00:00 98.1 79 18 143/64 96 Room Air 03/05/17 21:26 163/63 03/05/17 21:00 98.1 77 18 168/73 96 Room Air 03/05/17 16:00 97.0 79 19 163/63 96 Room Air 03/05/17 12:00 97.7 74 18 141/64 98 Room Air 03/05/17 09:08 160/62 Laboratory Tests 03/06/17 05:50: Sodium Level [Pending], Potassium Level [Pending], Chloride Level [Pending], Carbon Dioxide Level [Pending], Blood Urea Nitrogen [Pending], Creatinine [ Pending], Estimat Glomerular Filtration Rate [Pending], Glucose Level [Pending] , Calcium Level [Pending] Height (Feet): 4 Height (Inches): 9.00 Weight (Pounds): 156 Objective General Appearance: WD/WN, alert Neck: supple Cardiovascular: normal rate, regular rhythm Respiratory/Chest: chest wall non-tender, lungs clear, normal breath sounds, no respiratory distress Abdomen: normal bowel sounds, non tender, soft, no organomegaly, no mass Edema: no edema noted Arm (L), no edema noted Arm (R), no edema noted Leg (L), no edema noted Leg (R), no edema noted Pedal (L), no edema noted Pedal (R), no edema noted Generalized JONY PALOMARES Mar 06, 2017 08:16
[2017-03-06 08:55] VITALS: BP 144/86
[2017-03-06] MEDS: Docusate 250mg cap ORAL SCH ×2 (09:33→18:29)
[2017-03-06] MEDS: metFORMIN 500mg tab ORAL SCH (09:35)
[2017-03-06] MEDS: Lisinopril 20mg tab ORAL SCH ×2 (09:35→21:06)
[2017-03-06] MEDS: Heparin 5000 units/ml inj SUBQ SCH ×2 (09:36→21:11)
[2017-03-06 12:17] VITALS: BP 110/66
[2017-03-06 16:18] VITALS: BP 128/57
[2017-03-06 20:17] VITALS: BP 152/80
[2017-03-07 00:09] VITALS: BP 146/69
[2017-03-07] MEDS: Norco 10mg/325mg tab ORAL PRN (00:57)
[2017-03-07 03:54] VITALS: BP 133/60
[2017-03-07] MEDS: NovoLOG Insulin Flexpen SUBQ SCH ×4 (06:07→21:21)
--- NOTE | 2017-03-07 08:28 | Infectious Diseases Prog Note ---
Assessment/Plan Assessment/Plan A; Herpes zoster Spinal stenosis DM type 2 Obesity Osteoporosis P; Continue Acyclovir F/U CBC Subjective ROS Limited/Unobtainable: Yes Constitutional: Reports: other - low grade fever yesterday Allergies: Coded Allergies: SALICYLATES (Verified Allergy, Mild, 04/16/09) ACETAMINOPHEN (Verified Adverse Reaction, Mild, VOMITING, 03/31/12) ASPIRIN (Verified Adverse Reaction, Mild, STOMACH PAIN, 03/31/12) CODEINE (Verified Adverse Reaction, Mild, VOMITING, 03/31/12) Objective Vital Signs Last 24 Hour Vital Signs Date Time Temp Pulse Resp B/P Pulse Ox O2 Delivery O2 Flow Rate FiO2 03/07/17 03:54 97.5 85 17 133/60 95 Room Air 03/07/17 01:56 98.2 03/07/17 00:09 98.2 92 18 146/69 96 Room Air 03/06/17 21:06 152/80 03/06/17 20:17 96.6 89 18 152/80 97 Room Air 03/06/17 16:18 97.7 78 20 128/57 96 Room Air 03/06/17 12:17 97.9 96 20 110/66 96 Room Air 03/06/17 10:08 100.6 03/06/17 09:35 161/61 03/06/17 08:55 100.6 101 20 144/86 96 Room Air Height (Feet): 4 Height (Inches): 9.00 Weight (Pounds): 156 General Appearance: no acute distress HEENT: mucous membranes moist Respiratory/Chest: normal breath sounds Cardiovascular: normal rate Abdomen: soft, non tender Extremities: no edema Skin: rash, other - in right foot Neurologic/Psychiatric: other - sleeping Current Medications Medications (Trade) Dose Ordered Sig/Ashlie Route PRN Reason Start Time Stop Time Status Last Admin Dose Admin Acetaminophen/ Hydrocodone Bitart ([place] 10/325) 1 ea Q4H PRN ORAL For Breakthru Pain 03/03/17 15:00 03/10/17 14:59 03/07/17 00:57 Acyclovir (Zovirax) 800 mg FIVE TIMES A DAY ORAL 03/04/17 14:00 04/03/17 13:59 03/07/17 06:27 Alendronate Sodium (Fosamax) 70 mg ONCE A WEEK ORAL 03/08/17 06:30 04/07/17 06:29 Bisacodyl (Dulcolax) 10 mg DAILYPRN PRN RECTAL Constipation 03/05/17 13:30 04/04/17 13:29 03/05/17 14:35 Clonidine HCl (Catapres) 0.1 mg Q4H PRN ORAL For High Blood Pressure 03/02/17 22:15 04/01/17 22:14 03/06/17 04:40 Dextrose (Dextrose 50%) STAT PRN IV Hypoglycemia 03/02/17 16:15 04/01/17 16:14 Docusate Sodium (Colace) 250 mg BID ORAL 03/04/17 18:00 04/03/17 17:59 03/06/17 18:29 Heparin Sodium (Porcine) (Heparin 5000 units/ml) 5,000 units EVERY 12 HOURS SUBQ 03/02/17 21:00 04/01/17 20:59 03/06/17 21:11 Insulin Aspart (NovoLOG) BEFORE MEALS AND HS SUBQ 03/02/17 21:00 04/01/17 20:59 03/07/17 06:07 Lisinopril (Prinivil) 40 mg Q12HR ORAL 03/02/17 21:00 04/01/17 20:59 03/06/17 21:06 Magnesium Hydroxide (Mom) 30 ml TID PRN ORAL Constipation 03/03/17 20:00 04/02/17 19:59 03/06/17 00:33 Metformin HCl (Glucophage) 500 mg DAILY ORAL 03/03/17 09:00 04/02/17 08:59 03/06/17 09:35 Morphine Sulfate (Morphine Sulfate) 1 mg Q4H PRN IVP Severe Pain (Pain Scale 7-10) 03/02/17 22:15 03/09/17 22:14 03/06/17 18:29 Oxycodone/ Acetaminophen (Percocet 10/325) 1 tab Q6H PRN ORAL Moderate Pain (Pain Scale 4-6) 03/03/17 01:15 03/10/17 01:14 Pantoprazole (Protonix) 40 mg DAILY ORAL 03/03/17 09:00 04/02/17 08:59 03/06/17 09:35 SUDHIR WOOTEN Mar 07, 2017 08:28
[2017-03-07 08:30] VITALS: BP 146/61
[2017-03-07] MEDS: Docusate 250mg cap ORAL SCH ×2 (09:03→18:25)
[2017-03-07] MEDS: metFORMIN 500mg tab ORAL SCH (09:03)
[2017-03-07] MEDS: Lisinopril 20mg tab ORAL SCH ×2 (09:03→21:14)
[2017-03-07] MEDS: Heparin 5000 units/ml inj SUBQ SCH ×2 (09:06→21:22)
[2017-03-07] MEDS: Morphine Sulfate 2mg/ml Inj IVP PRN ×4 (09:47→22:24)
[2017-03-07 12:20] VITALS: BP 143/52
[2017-03-07 16:18] VITALS: BP 122/69
--- NOTE | 2017-03-07 18:59 | General Progress Note ---
Assessment/Plan Problem List: (1) Gastroenteritis ICD Codes: K52.9 - Gastroenteritis SNOMED: 41989501 (2) Gait instability ICD Codes: R26.81 - Unsteadiness on feet SNOMED: 52927905, 166122136 (3) Intractable low back pain ICD Codes: M54.5 - Low back pain SNOMED: [id number] Status: stable, not improved, unchanged Assessment/Plan d/w . states pt declined nerve block but dtr states that she wants it now nerve block per spine- will d/w again. try to contact dr lala anesthesia for injection ct abd ordered at family request due persistent abd pain pain rx dvt/stress ulcer prophylaxis acyclovir for shingles rx pt/ot d/w dtr ada Subjective ROS Limited/Unobtainable: No Constitutional: Reports: malaise, weakness HEENT: Reports: no symptoms Cardiovascular: Reports: no symptoms Respiratory: Reports: no symptoms Gastrointestinal/Abdominal: Reports: poor appetite Genitourinary: Reports: no symptoms Neurologic/Psychiatric: Reports: other - pain, paresthesia Endocrine: Reports: no symptoms Hematologic/Lymphatic: Reports: anemia Allergies: Coded Allergies: SALICYLATES (Verified Allergy, Mild, 04/16/09) ACETAMINOPHEN (Verified Adverse Reaction, Mild, VOMITING, 03/31/12) ASPIRIN (Verified Adverse Reaction, Mild, STOMACH PAIN, 03/31/12) CODEINE (Verified Adverse Reaction, Mild, VOMITING, 03/31/12) Subjective still having severe back pain. on iv morphine. large herniated disc on mri noted. no fever or chills. no focal weakness. requiring iv morphine nearly every 4 hours. Pt initially declined epidural injection. Pt has now reconsidered and wants to proceed due to severe intractable pain Objective Last 24 Hour Vital Signs Date Time Temp Pulse Resp B/P Pulse Ox O2 Delivery O2 Flow Rate FiO2 03/07/17 16:18 96.6 87 20 122/69 97 Room Air 03/07/17 12:20 97.7 99 19 143/52 97 Room Air 03/07/17 09:03 146/61 03/07/17 08:30 99.1 105 19 146/61 95 Room Air 03/07/17 03:54 97.5 85 17 133/60 95 Room Air 03/07/17 01:56 98.2 7/16/17 00:09 98.2 92 18 146/69 96 Room Air 03/06/17 21:06 152/80 03/06/17 20:17 96.6 89 18 152/80 97 Room Air Intake and Output 03/06/17 03/07/17 19:00 07:00 Intake Total 480 ml Balance 480 ml Intake Oral 480 ml # Voids 2 Height (Feet): 4 Height (Inches): 9.00 Weight (Pounds): 156 Objective General Appearance: WD/WN, alert Neck: supple Cardiovascular: normal rate, regular rhythm Respiratory/Chest: chest wall non-tender, lungs clear, normal breath sounds, no respiratory distress Abdomen: normal bowel sounds, non tender, soft, no organomegaly, no mass Edema: no edema noted Arm (L), no edema noted Arm (R), no edema noted Leg (L), no edema noted Leg (R), no edema noted Pedal (L), no edema noted Pedal (R), no edema noted Generalized JONY PALOMARES Mar 07, 2017 18:59
[2017-03-07 20:00] VITALS: BP 139/76
[2017-03-08] VITALS: BP 158/82
[2017-03-08 04:00] VITALS: BP 153/58
[2017-03-08] MEDS: NovoLOG Insulin Flexpen SUBQ SCH ×4 (06:28→21:01)
[2017-03-08] MEDS: Morphine Sulfate 2mg/ml Inj IVP PRN ×3 (06:33→20:54)
--- NOTE | 2017-03-08 07:16 | Infectious Diseases Prog Note ---
Assessment/Plan Assessment/Plan A; Herpes zoster Spinal stenosis DM type 2 Obesity Osteoporosis P; Continue Acyclovir X 3 days F/U CBC Subjective ROS Limited/Unobtainable: No Constitutional: Reports: no symptoms Respiratory: Reports: no symptoms Neurologic: Reports: no symptoms Musculoskeletal: Reports: other - decreased, pain Allergies: Coded Allergies: SALICYLATES (Verified Allergy, Mild, 04/16/09) ACETAMINOPHEN (Verified Adverse Reaction, Mild, VOMITING, 03/31/12) ASPIRIN (Verified Adverse Reaction, Mild, STOMACH PAIN, 03/31/12) CODEINE (Verified Adverse Reaction, Mild, VOMITING, 03/31/12) Objective Vital Signs Last 24 Hour Vital Signs Date Time Temp Pulse Resp B/P Pulse Ox O2 Delivery O2 Flow Rate FiO2 03/08/17 04:00 98.8 82 18 153/58 94 03/08/17 00:00 99.1 90 20 158/82 94 Room Air 03/07/17 21:14 139/76 03/07/17 20:00 99.5 90 18 139/76 100 Room Air 03/07/17 16:18 96.6 87 20 122/69 97 Room Air 03/07/17 12:20 97.7 99 19 143/52 97 Room Air 03/07/17 09:03 146/61 03/07/17 08:30 99.1 105 19 146/61 95 Room Air Height (Feet): 4 Height (Inches): 9.00 Weight (Pounds): 156 General Appearance: no acute distress HEENT: mucous membranes moist Respiratory/Chest: lungs clear Cardiovascular: normal rate Abdomen: soft, non tender Extremities: no edema Skin: other - healing rash in right foot Neurologic/Psychiatric: alert, oriented x 3, responsive Current Medications Medications (Trade) Dose Ordered Sig/Ashlie Route PRN Reason Start Time Stop Time Status Last Admin Dose Admin Acetaminophen/ Hydrocodone Bitart ([place] 10/325) 1 ea Q4H PRN ORAL For Breakthru Pain 03/03/17 15:00 03/10/17 14:59 03/07/17 00:57 Acyclovir (Zovirax) 800 mg FIVE TIMES A DAY ORAL 03/04/17 14:00 04/03/17 13:59 03/08/17 06:24 Alendronate Sodium (Fosamax) 70 mg ONCE A WEEK ORAL 03/08/17 06:30 04/07/17 06:29 Bisacodyl (Dulcolax) 10 mg DAILYPRN PRN RECTAL Constipation 03/05/17 13:30 04/04/17 13:29 03/05/17 14:35 Clonidine HCl (Catapres) 0.1 mg Q4H PRN ORAL For High Blood Pressure 03/02/17 22:15 04/01/17 22:14 03/06/17 04:40 Dextrose (Dextrose 50%) STAT PRN IV Hypoglycemia 03/02/17 16:15 04/01/17 16:14 Docusate Sodium (Colace) 250 mg BID ORAL 03/04/17 18:00 04/03/17 17:59 03/07/17 18:25 Heparin Sodium (Porcine) (Heparin 5000 units/ml) 5,000 units EVERY 12 HOURS SUBQ 03/02/17 21:00 04/01/17 20:59 03/07/17 21:22 Insulin Aspart (NovoLOG) BEFORE MEALS AND HS SUBQ 03/02/17 21:00 04/01/17 20:59 03/08/17 06:28 Lisinopril (Prinivil) 40 mg Q12HR ORAL 03/02/17 21:00 04/01/17 20:59 03/07/17 21:14 Magnesium Hydroxide (Mom) 30 ml TID PRN ORAL Constipation 03/03/17 20:00 04/02/17 19:59 03/06/17 00:33 Metformin HCl (Glucophage) 500 mg DAILY ORAL 03/03/17 09:00 04/02/17 08:59 03/07/17 09:03 Morphine Sulfate (Morphine Sulfate) 1 mg Q4H PRN IVP Severe Pain (Pain Scale 7-10) 03/02/17 22:15 03/09/17 22:14 03/08/17 06:33 Oxycodone/ Acetaminophen (Percocet 10/325) 1 tab Q6H PRN ORAL Moderate Pain (Pain Scale 4-6) 03/03/17 01:15 03/10/17 01:14 Pantoprazole (Protonix) 40 mg DAILY ORAL 03/03/17 09:00 04/02/17 08:59 03/07/17 09:02 SUDHIR WOOTEN Mar 08, 2017 07:16
[2017-03-08 07:45] LABS: BASOPHILS % (AUTO) 1.2 % (0.0-2.0); EOSINOPHILS % (AUTO) 0.7 % (0.0-3.0); LYMPHOCYTES % (AUTO) 23.1 % (20.0-45.0); MEAN CORPUSCULAR HEMOGLOBIN 29.7 PG (27.0-31.0); MEAN CORPUSCULAR HGB CONC 33.4 G/DL (32.0-36.0); MEAN CORPUSCULAR VOLUME 89 FL (80-99); MEAN PLATELET VOLUME 7.6 FL (6.5-10.1); MONOCYTES % (AUTO) 11.8 % (1.0-10.0); NEUTROPHILS % (AUTO) 63.3 % (45.0-75.0); PLATELET COUNT 283 K/UL (150-450); RED BLOOD COUNT 4.34 M/UL (4.20-5.40); RED CELL DISTRIBUTION WIDTH 13.2 % (11.6-14.8); WHITE BLOOD COUNT 5.5 K/UL (4.8-10.8)
[2017-03-08 08:00] VITALS: BP 140/65
[2017-03-08] MEDS: Heparin 5000 units/ml inj SUBQ SCH ×2 (09:28→21:01)
[2017-03-08] MEDS: Lisinopril 20mg tab ORAL SCH ×2 (09:29→20:53)
[2017-03-08] MEDS: metFORMIN 500mg tab ORAL SCH (09:29)
[2017-03-08] MEDS: Docusate 250mg cap ORAL SCH ×2 (09:30→18:47)
--- NOTE | 2017-03-08 10:45 | Diagnostic Imaging Report ---
Indication: Abdominal pain Technique: Continuous helical transaxial imaging of the abdomen and pelvis was obtained from the lung bases to the pubic symphysis. No intravenous contrast was administered. Coronal 2-D reformats were also obtained. Total Dose length Product (DLP): [address] Dose Index Volume (CTDIvol): 19 mGy Comparison: none Findings: There are multiple tiny nodular foci within the lungs bilaterally. These appear to be associated with the tiny terminal branches (tree in bud) which is a sign of small airways interstitial disease. The possibility of metastatic neoplasm is not excluded. Consider further evaluation with CT chest including high-resolution images. Gallbladder is distended. No definite gallstones or renal stones seen. There is no hydronephrosis seen. The aorta is mildly calcified. Extensive diverticula noted throughout the sigmoid colon. No definite diverticulitis identified. No free fluid or free air identified. The uterus is present. There is narrowing of intervertebral discs and accompanying endplate osteophyte formation. Hypertrophied facet joints also demonstrated. Multilevel posterior fusion with pedicle screws and fusion rods demonstrated within the lumbar spine L2-S1. Appendix is not definite seen. There are no secondary signs of appendicitis identified. Impression: Diverticulosis of the colon. No definite diverticulitis identified. Multiple tiny non-calcified nodules noted at the lung bases bilaterally with some branching opacities, possibly tree in bud. Suggest CT chest for further evaluation. Cardiomegaly and atherosclerotic disease. Distended gallbladder nonspecific. Lumbar spondylosis and multilevel instrumented fusion. The CT scanner at [facility] is accredited by the [employer] and the scans are performed using dose optimization techniques as appropriate to a performed exam including Automatic Exposure control.
[2017-03-08 12:00] VITALS: BP 154/79
--- NOTE | 2017-03-08 14:25 | General Progress Note ---
Assessment/Plan Problem List: (1) Gastroenteritis ICD Codes: K52.9 - Gastroenteritis SNOMED: 29047469 (2) Gait instability ICD Codes: R26.81 - Unsteadiness on feet SNOMED: 95195140, 652381084 (3) Intractable low back pain ICD Codes: M54.5 - Low back pain SNOMED: 12645576017268686 Status: stable, progressing Assessment/Plan message left with Dr.wynne browning regarding possible nerve block/epidural follow ct abd pain rx dvt/stress ulcer prophylaxis acyclovir for shingles rx pt/ot d/w dtr ada Subjective ROS Limited/Unobtainable: No Constitutional: Reports: malaise, weakness HEENT: Reports: no symptoms Cardiovascular: Reports: no symptoms Respiratory: Reports: no symptoms Gastrointestinal/Abdominal: Reports: abdomen distended, abdominal pain Allergies: Coded Allergies: SALICYLATES (Verified Allergy, Mild, 04/16/09) ACETAMINOPHEN (Verified Adverse Reaction, Mild, VOMITING, 03/31/12) ASPIRIN (Verified Adverse Reaction, Mild, STOMACH PAIN, 03/31/12) CODEINE (Verified Adverse Reaction, Mild, VOMITING, 03/31/12) Subjective still with severe back pain requiring ATC iv morphine. D/w - anesthesiology- not available for nerve block/epidural Objective Last 24 Hour Vital Signs Date Time Temp Pulse Resp B/P Pulse Ox O2 Delivery O2 Flow Rate FiO2 03/08/17 12:00 98.2 85 18 154/79 96 Room Air 03/08/17 09:29 140/65 03/08/17 08:00 98.0 92 18 140/65 93 Room Air 03/08/17 04:00 98.8 82 18 153/58 94 03/08/17 00:00 99.1 90 20 158/82 94 Room Air 03/07/17 21:14 139/76 03/07/17 20:00 99.5 90 18 139/76 100 Room Air 03/07/17 16:18 96.6 87 20 122/69 97 Room Air Intake and Output 03/07/17 03/08/17 19:00 07:00 Intake Total 480 ml Balance 480 ml Intake Oral 480 ml # Voids 2 Laboratory Tests 03/08/17 06:33: White Blood Count 5.5, Red Blood Count 4.34, Hemoglobin 12.9, Hematocrit 38.6, Mean Corpuscular Volume 89, Mean Corpuscular Hemoglobin 29.7, Mean Corpuscular Hemoglobin Concent 33.4, Red Cell Distribution Width 13.2, Platelet Count 283, Mean Platelet Volume 7.6, Neutrophils (%) (Auto) 63.3, Lymphocytes (%) (Auto) 23.1, Monocytes (%) (Auto) 11.8H, Eosinophils (%) (Auto) 0.7, Basophils (%) ( Auto) 1.2 Height (Feet): 4 Height (Inches): 9.00 Weight (Pounds): 156 Objective General Appearance: WD/WN, alert Neck: supple Cardiovascular: normal rate, regular rhythm Respiratory/Chest: chest wall non-tender, lungs clear, normal breath sounds, no respiratory distress Abdomen: normal bowel sounds, non tender, soft, no organomegaly, no mass Edema: no edema noted Arm (L), no edema noted Arm (R), no edema noted Leg (L), no edema noted Leg (R), no edema noted Pedal (L), no edema noted Pedal (R), no edema noted Generalized JONY PALOMAERS Mar 08, 2017 14:25
[2017-03-08 16:11] VITALS: BP 142/61
[2017-03-08 19:15] LABS: INR 0.9 (0.9-1.1); PROTHROMBIN TIME 9.5 SEC (9.30-11.50)
[2017-03-08 20:45] VITALS: BP 141/80
[2017-03-09] VITALS (7 sets, daily range): BP systolic 139–175; BP diastolic 59–82
[2017-03-09] MEDS: NovoLOG Insulin Flexpen SUBQ SCH ×4 (06:33→20:13)
--- NOTE | 2017-03-09 09:20 | General Progress Note ---
Assessment/Plan Problem List: (1) Gastroenteritis ICD Codes: K52.9 - Gastroenteritis SNOMED: 76871112 (2) Gait instability ICD Codes: R26.81 - Unsteadiness on feet SNOMED: 16308259, 062753843 (3) Intractable low back pain ICD Codes: M54.5 - Low back pain SNOMED: [id number] Status: stable, not improved Assessment/Plan message left with Dr.wynne browning regarding possible nerve block/epidural. she is out of town till tomorrow ct abd noted- will check ct chest pain rx dvt/stress ulcer prophylaxis acyclovir for shingles rx pt/ot d/w dtr ada Subjective ROS Limited/Unobtainable: No Constitutional: Reports: malaise, weakness HEENT: Reports: no symptoms Cardiovascular: Reports: no symptoms Respiratory: Reports: no symptoms Gastrointestinal/Abdominal: Reports: abdomen distended, abdominal pain Genitourinary: Reports: no symptoms Neurologic/Psychiatric: Reports: pre-existing deficit Endocrine: Reports: no symptoms Hematologic/Lymphatic: Reports: no symptoms Allergies: Coded Allergies: SALICYLATES (Verified Allergy, Mild, 04/16/09) ACETAMINOPHEN (Verified Adverse Reaction, Mild, VOMITING, 03/31/12) ASPIRIN (Verified Adverse Reaction, Mild, STOMACH PAIN, 03/31/12) CODEINE (Verified Adverse Reaction, Mild, VOMITING, 03/31/12) All Systems: reviewed and negative except above Subjective still with severe back pain requiring ATC iv morphine- every 4 hours. D/w - anesthesiology- not available for nerve block/epidural. d/w Dr.wyne browning- returning to [place] tomorrow. Will eval for possible nerve block/epidural Objective Last 24 Hour Vital Signs Date Time Temp Pulse Resp B/P Pulse Ox O2 Delivery O2 Flow Rate FiO2 03/09/17 04:21 98.6 70 21 140/60 94 Room Air 03/09/17 00:48 98.6 74 21 140/59 94 Room Air 03/08/17 21:24 98.2 03/08/17 20:53 141/80 03/08/17 20:45 98.2 82 21 141/80 94 Room Air 03/08/17 16:11 97.5 75 18 142/61 96 Room Air 03/08/17 12:00 98.2 85 18 154/79 96 Room Air 03/08/17 09:29 140/65 Intake and Output 03/08/17 03/09/17 19:00 07:00 Intake Total 960 ml Balance 960 ml Intake Oral 960 ml # Voids 4 # Bowel Movements 2 Laboratory Tests 03/08/17 18:43: Prothrombin Time 9.5, Prothromb Time International Ratio 0.9, Activated Partial Thromboplast Time 28 Height (Feet): 4 Height (Inches): 9.00 Weight (Pounds): 156 Objective General Appearance: WD/WN, alert Neck: supple Cardiovascular: normal rate, regular rhythm Respiratory/Chest: chest wall non-tender, lungs clear, normal breath sounds, no respiratory distress Abdomen: normal bowel sounds, non tender, soft, no organomegaly, no mass Edema: no edema noted Arm (L), no edema noted Arm (R), no edema noted Leg (L), no edema noted Leg (R), no edema noted Pedal (L), no edema noted Pedal (R), no edema noted Generalized JONY PALOMARES Mar 09, 2017 09:20
[2017-03-09] MEDS: Lisinopril 20mg tab ORAL SCH ×2 (09:27→21:58)
[2017-03-09] MEDS: metFORMIN 500mg tab ORAL SCH (09:27)
[2017-03-09] MEDS: Docusate 250mg cap ORAL SCH ×2 (09:27→19:33)
[2017-03-09] MEDS: Heparin 5000 units/ml inj SUBQ SCH ×2 (09:28→20:13)
--- NOTE | 2017-03-09 11:00 | Infectious Diseases Prog Note ---
Assessment/Plan Assessment/Plan antibiotics : acyclovir A 1. zoster of leg 2. spinal stenosis 3. DM P 1. continue acyclovir 2. will follow up clinically Subjective Constitutional: Denies: chills, fever Respiratory: Denies: dry cough, shortness of breath Gastrointestinal/Abdominal: Denies: diarrhea, nausea, vomiting Musculoskeletal: Denies: pain Allergies: Coded Allergies: SALICYLATES (Verified Allergy, Mild, 04/16/09) ACETAMINOPHEN (Verified Adverse Reaction, Mild, VOMITING, 03/31/12) ASPIRIN (Verified Adverse Reaction, Mild, STOMACH PAIN, 03/31/12) CODEINE (Verified Adverse Reaction, Mild, VOMITING, 03/31/12) Objective Vital Signs Last 24 Hour Vital Signs Date Time Temp Pulse Resp B/P Pulse Ox O2 Delivery O2 Flow Rate FiO2 03/09/17 09:27 139/67 03/09/17 08:00 97.4 77 20 139/67 94 Room Air 03/09/17 04:21 98.6 70 21 140/60 94 Room Air 03/09/17 00:48 98.6 74 21 140/59 94 Room Air 03/08/17 21:24 98.2 03/08/17 20:53 141/80 03/08/17 20:45 98.2 82 21 141/80 94 Room Air 03/08/17 16:11 97.5 75 18 142/61 96 Room Air 03/08/17 12:00 98.2 85 18 154/79 96 Room Air Height (Feet): 4 Height (Inches): 9.00 Weight (Pounds): 156 Respiratory/Chest: lungs clear Cardiovascular: normal rate, regular rhythm, no gallop/murmur Abdomen: soft, non tender Extremities: no edema Laboratory Tests Test 03/08/17 18:43 Prothrombin Time 9.5 SEC (9.30-11.50) Prothromb Time International Ratio 0.9 (0.9-1.1) Activated Partial Thromboplast Time 28 SEC (23-33) ANTONELLA GAR Mar 09, 2017 11:00
[2017-03-09] MEDS: Morphine Sulfate 2mg/ml Inj IVP PRN ×2 (11:40→20:09)
[2017-03-09] MEDS: Norco 10mg/325mg tab ORAL PRN (23:52)
[2017-03-10 00:30] VITALS: BP 156/71
[2017-03-10 04:52] VITALS: BP 150/74
[2017-03-10] MEDS: NovoLOG Insulin Flexpen SUBQ SCH ×4 (06:26→21:00)
[2017-03-10] MEDS: Norco 10mg/325mg tab ORAL PRN ×3 (06:31→15:48)
[2017-03-10 07:58] VITALS: BP 144/59
--- NOTE | 2017-03-10 08:12 | General Progress Note ---
Assessment/Plan Problem List: (1) Gastroenteritis ICD Codes: K52.9 - Gastroenteritis SNOMED: 15636136 (2) Gait instability ICD Codes: R26.81 - Unsteadiness on feet SNOMED: 80500349, 527911334 (3) Intractable low back pain ICD Codes: M54.5 - Low back pain SNOMED: 56726230522747123 Status: stable, not improved Assessment/Plan message left with Dr.wynne browning regarding possible nerve block/epidural. Back today ct abd noted- will check ct chest per radiology recs pain rx dvt/stress ulcer prophylaxis acyclovir for shingles rx pt/ot pt still requiring iv pain meds for pain control. requesting pain injection d/w dtr ada Subjective ROS Limited/Unobtainable: No Constitutional: Reports: malaise, weakness HEENT: Reports: no symptoms Cardiovascular: Reports: no symptoms Respiratory: Reports: no symptoms Gastrointestinal/Abdominal: Reports: abdomen distended, abdominal pain Genitourinary: Reports: no symptoms Neurologic/Psychiatric: Reports: paresthesia, pre-existing deficit Endocrine: Reports: no symptoms Hematologic/Lymphatic: Reports: no symptoms Allergies: Coded Allergies: SALICYLATES (Verified Allergy, Mild, 04/16/09) ACETAMINOPHEN (Verified Adverse Reaction, Mild, VOMITING, 03/31/12) ASPIRIN (Verified Adverse Reaction, Mild, STOMACH PAIN, 03/31/12) CODEINE (Verified Adverse Reaction, Mild, VOMITING, 03/31/12) All Systems: reviewed and negative except above Subjective still with severe back pain requiring ATC iv morphine- every 4-6 hours. some relief with norco. pain radiates down right leg. no incontinence or weakness. Objective Last 24 Hour Vital Signs Date Time Temp Pulse Resp B/P Pulse Ox O2 Delivery O2 Flow Rate FiO2 03/10/17 07:58 97.5 86 20 144/59 95 Room Air 03/10/17 04:52 97.7 78 19 150/74 95 Room Air 03/10/17 00:51 97.7 03/10/17 00:30 83 156/71 03/09/17 23:59 97.7 85 20 175/82 96 Room Air 03/09/17 21:58 158/74 03/09/17 20:39 97.3 03/09/17 20:13 97.3 80 20 158/74 94 Room Air 03/09/17 16:19 98.1 79 20 146/77 96 Room Air 03/09/17 12:00 97.8 74 20 142/65 94 Room Air 03/09/17 09:27 139/67 Intake and Output 03/09/17 03/10/17 19:00 07:00 Intake Total 720 ml 360 ml Balance 720 ml 360 ml Intake Oral 720 ml 360 ml # Voids 5 2 Height (Feet): 4 Height (Inches): 9.00 Weight (Pounds): 156 Objective General Appearance: WD/WN, alert Neck: supple Cardiovascular: normal rate, regular rhythm Respiratory/Chest: chest wall non-tender, lungs clear, normal breath sounds, no respiratory distress Abdomen: normal bowel sounds, non tender, soft, no organomegaly, no mass Edema: no edema noted Arm (L), no edema noted Arm (R), no edema noted Leg (L), no edema noted Leg (R), no edema noted Pedal (L), no edema noted Pedal (R), no edema noted Generalized JONY PALOMARES Mar 10, 2017 08:12
[2017-03-10] MEDS: Docusate 250mg cap ORAL SCH ×2 (09:27→19:16)
[2017-03-10] MEDS: metFORMIN 500mg tab ORAL SCH (09:27)
[2017-03-10] MEDS: Lisinopril 20mg tab ORAL SCH ×2 (09:27→21:14)
[2017-03-10] MEDS: Heparin 5000 units/ml inj SUBQ SCH ×2 (09:34→20:06)
--- NOTE | 2017-03-10 11:50 | Infectious Diseases Prog Note ---
Assessment/Plan Assessment/Plan antibiotics : acyclovir A 1. zoster of leg 2. spinal stenosis 3. DM P 1. continue acyclovir 2. will follow up clinically Subjective ROS Limited/Unobtainable: Yes Allergies: Coded Allergies: SALICYLATES (Verified Allergy, Mild, 04/16/09) ACETAMINOPHEN (Verified Adverse Reaction, Mild, VOMITING, 03/31/12) ASPIRIN (Verified Adverse Reaction, Mild, STOMACH PAIN, 03/31/12) CODEINE (Verified Adverse Reaction, Mild, VOMITING, 03/31/12) Objective Vital Signs Last 24 Hour Vital Signs Date Time Temp Pulse Resp B/P Pulse Ox O2 Delivery O2 Flow Rate FiO2 03/10/17 09:27 144/59 03/10/17 07:58 97.5 86 20 144/59 95 Room Air 03/10/17 04:52 97.7 78 19 150/74 95 Room Air 03/10/17 00:51 97.7 03/10/17 00:30 83 156/71 03/09/17 23:59 97.7 85 20 175/82 96 Room Air 03/09/17 21:58 158/74 03/09/17 20:39 97.3 03/09/17 20:13 97.3 80 20 158/74 94 Room Air 03/09/17 16:19 98.1 79 20 146/77 96 Room Air 03/09/17 12:00 97.8 74 20 142/65 94 Room Air Height (Feet): 4 Height (Inches): 9.00 Weight (Pounds): 156 Respiratory/Chest: lungs clear Cardiovascular: normal rate, regular rhythm, no gallop/murmur Abdomen: soft, non tender Extremities: no edema ANTONELLA GAR Mar 10, 2017 11:50
[2017-03-10 11:53] VITALS: BP 142/60
[2017-03-10 15:44] VITALS: BP 113/57
[2017-03-10 20:00] VITALS: BP 156/76
[2017-03-10] MEDS: Morphine Sulfate 2mg/ml Inj IVP PRN (20:15)
--- NOTE | 2017-03-10 23:59 | Consultation ---
Consult Note Consult Note consult dictated 86 y/o female with multiple medical problems including hx/o chronic back pain, c /o lbp radiating to rle requiring optimized analgesia. Assessment/Plan failed back syndrome. / lesb under fluoroscopy JENI ROGERS Mar 10, 2017 23:59
[2017-03-11] VITALS (8 sets, daily range): BP systolic 134–161; BP diastolic 66–84
[2017-03-11] MEDS: Morphine Sulfate 2mg/ml Inj IVP PRN ×2 (04:01→15:55)
[2017-03-11] MEDS: NovoLOG Insulin Flexpen SUBQ SCH ×4 (05:36→21:12)
[2017-03-11 07:45] LABS: INR 0.9 (0.9-1.1); PROTHROMBIN TIME 9.4 SEC (9.30-11.50)
--- NOTE | 2017-03-11 07:54 | General Progress Note ---
Assessment/Plan Problem List: (1) Gastroenteritis ICD Codes: K52.9 - Gastroenteritis SNOMED: 74171027 (2) Gait instability ICD Codes: R26.81 - Unsteadiness on feet SNOMED: 30917942, 046678130 (3) Intractable low back pain ICD Codes: M54.5 - Low back pain SNOMED: [id number] Status: stable, progressing Assessment/Plan epidural/nerve block today pain rx dvt/stress ulcer prophylaxis acyclovir for shingles rx pt/ot pt still requiring iv pain meds for pain control. requesting pain injection d/w dtr ada Subjective ROS Limited/Unobtainable: No Constitutional: Reports: malaise, weakness HEENT: Reports: no symptoms Cardiovascular: Reports: no symptoms Respiratory: Reports: no symptoms Gastrointestinal/Abdominal: Reports: abdominal pain Genitourinary: Reports: no symptoms Neurologic/Psychiatric: Reports: paresthesia, pre-existing deficit Endocrine: Reports: no symptoms Hematologic/Lymphatic: Reports: no symptoms Allergies: Coded Allergies: SALICYLATES (Verified Allergy, Mild, 04/16/09) ACETAMINOPHEN (Verified Adverse Reaction, Mild, VOMITING, 03/31/12) ASPIRIN (Verified Adverse Reaction, Mild, STOMACH PAIN, 03/31/12) CODEINE (Verified Adverse Reaction, Mild, VOMITING, 03/31/12) All Systems: reviewed and negative except above Subjective still with severe back pain requiring ATC iv morphine- every 4-6 hours. some relief with norco. pain radiates down right leg. no incontinence or weakness. NPO for nerve block/epidural Objective Last 24 Hour Vital Signs Date Time Temp Pulse Resp B/P Pulse Ox O2 Delivery O2 Flow Rate FiO2 03/11/17 05:08 77 149/77 03/11/17 04:37 98.1 87 19 161/84 95 Room Air 03/11/17 04:31 97.5 03/11/17 00:29 97.5 80 17 146/67 94 Room Air 03/10/17 21:14 156/76 03/10/17 20:00 97.7 76 20 156/76 94 Room Air 03/10/17 15:44 97.7 77 20 113/57 94 Room Air 03/10/17 11:53 98.0 85 20 142/60 95 Room Air 03/10/17 09:27 144/59 03/10/17 07:58 97.5 86 20 144/59 95 Room Air Intake and Output 03/10/17 03/11/17 19:00 07:00 Intake Total 960 ml Balance 960 ml Intake Oral 960 ml # Voids 5 3 Laboratory Tests 03/11/17 05:30: Prothrombin Time [Pending], Prothromb Time International Ratio [Pending], Activated Partial Thromboplast Time [Pending] Height (Feet): 4 Height (Inches): 9.00 Weight (Pounds): 156 Objective General Appearance: WD/WN, alert Neck: supple Cardiovascular: normal rate, regular rhythm Respiratory/Chest: chest wall non-tender, lungs clear, normal breath sounds, no respiratory distress Abdomen: normal bowel sounds, non tender, soft, no organomegaly, no mass Edema: no edema noted Arm (L), no edema noted Arm (R), no edema noted Leg (L), no edema noted Leg (R), no edema noted Pedal (L), no edema noted Pedal (R), no edema noted Generalized JONY PALOMARES Mar 11, 2017 07:54
[2017-03-11] MEDS: Docusate 250mg cap ORAL SCH ×2 (08:52→17:11)
[2017-03-11] MEDS: Lisinopril 20mg tab ORAL SCH ×2 (08:52→21:04)
[2017-03-11] MEDS: metFORMIN 500mg tab ORAL SCH (08:53)
[2017-03-11] MEDS: Heparin 5000 units/ml inj SUBQ SCH ×2 (08:53→21:08)
--- NOTE | 2017-03-11 09:34 | Pain Management Progress Note ---
Subjective Allergies: Coded Allergies: SALICYLATES (Verified Allergy, Mild, 04/16/09) ACETAMINOPHEN (Verified Adverse Reaction, Mild, VOMITING, 03/31/12) ASPIRIN (Verified Adverse Reaction, Mild, STOMACH PAIN, 03/31/12) CODEINE (Verified Adverse Reaction, Mild, VOMITING, 03/31/12) Pain control reported as: inadequate Pain regimen: norco, morphine sulfate Last dose taken at: 04:01 Subjective Narrative Patient reports less than optimal analgesia on present pain management regimen. Requesting iv morphine q4h. patient scheduled for LESB under fluoroscopy today. Objective Vitals Last 24 Hour Vital Signs Date Time Temp Pulse Resp B/P Pulse Ox O2 Delivery O2 Flow Rate FiO2 03/11/17 08:52 147/82 03/11/17 08:05 97.7 86 18 147/82 97 Room Air 03/11/17 05:08 77 149/77 03/11/17 04:37 98.1 87 19 161/84 95 Room Air 03/11/17 04:31 97.5 03/11/17 00:29 97.5 80 17 146/67 94 Room Air 03/10/17 21:14 156/76 03/10/17 20:00 97.7 76 20 156/76 94 Room Air 03/10/17 15:44 97.7 77 20 113/57 94 Room Air 03/10/17 11:53 98.0 85 20 142/60 95 Room Air Pain level Pain level - 7/10 on a 0- to 10+ scale General Appearance: WD/WN, moderate distress - secondary to lbp and rle pain Eyes, Ears, Nose, Throat Exam: PERRL/EOMI, normal ENT inspection Neck Exam: supple Cardiovascular/Chest: normal rate, regular rhythm Respiratory: lungs clear, normal breath sounds Abdominal Exam: normal bowel sounds Extremity: normal range of motion Neurologic: abnormal gait - secondary to pain Skin Exam: normal pigmentation Assessment/Plan Problems: (1) Intractable low back pain Assessment & Plan: 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
[2017-03-11] MEDS ORDERED: Depo-Medrol 80mg Vial IARTIC ONE (10:00)
[2017-03-11] MEDS ORDERED: Bupivacaine 0.25% Inj 30ml INJ ONE (10:00)
[2017-03-11] MEDS ORDERED: Depo-Medrol 40mg Inj IARTIC ONE (10:00)
--- NOTE | 2017-03-11 10:56 | Infectious Diseases Prog Note ---
Assessment/Plan Assessment/Plan A; Herpes zoster s/ P Spinal stenosis DM type 2 Obesity Osteoporosis P; discontinue Acyclovir Subjective Constitutional: Reports: drenching sweats, no symptoms Respiratory: Reports: no symptoms Gastrointestinal/Abdominal: Reports: no symptoms Genitourinary: Reports: no symptoms Musculoskeletal: Reports: other - imroving, pain Allergies: Coded Allergies: SALICYLATES (Verified Allergy, Mild, 04/16/09) ACETAMINOPHEN (Verified Adverse Reaction, Mild, VOMITING, 03/31/12) ASPIRIN (Verified Adverse Reaction, Mild, STOMACH PAIN, 03/31/12) CODEINE (Verified Adverse Reaction, Mild, VOMITING, 03/31/12) Objective Vital Signs Last 24 Hour Vital Signs Date Time Temp Pulse Resp B/P Pulse Ox O2 Delivery O2 Flow Rate FiO2 03/11/17 08:52 147/82 03/11/17 08:05 97.7 86 18 147/82 97 Room Air 03/11/17 05:08 77 149/77 03/11/17 04:37 98.1 87 19 161/84 95 Room Air 03/11/17 04:31 97.5 03/11/17 00:29 97.5 80 17 146/67 94 Room Air 03/10/17 21:14 156/76 03/10/17 20:00 97.7 76 20 156/76 94 Room Air 03/10/17 15:44 97.7 77 20 113/57 94 Room Air 03/10/17 11:53 98.0 85 20 142/60 95 Room Air Height (Feet): 4 Height (Inches): 9.00 Weight (Pounds): 156 General Appearance: no acute distress HEENT: mucous membranes moist Respiratory/Chest: lungs clear Cardiovascular: normal rate Abdomen: soft, non tender Extremities: no edema Skin: rash, other - in right foot is crusted Neurologic/Psychiatric: alert, oriented x 3, responsive Laboratory Tests Test 03/11/17 05:30 Prothrombin Time 9.4 SEC (9.30-11.50) Prothromb Time International Ratio 0.9 (0.9-1.1) Activated Partial Thromboplast Time 26 SEC (23-33) Current Medications Medications (Trade) Dose Ordered Sig/Ashlie Route PRN Reason Start Time Stop Time Status Last Admin Dose Admin Acetaminophen/ Hydrocodone Bitart (Delmar 10/325) 1 ea Q4H PRN ORAL For Breakthru Pain 03/10/17 09:00 03/17/17 08:59 03/10/17 15:48 Acyclovir (Zovirax) 800 mg FIVE TIMES A DAY ORAL 03/04/17 14:00 04/03/17 13:59 03/11/17 10:40 Alendronate Sodium (Fosamax) 70 mg ONCE A WEEK ORAL 03/09/17 06:30 04/08/17 06:29 03/09/17 05:46 Bisacodyl (Dulcolax) 10 mg DAILYPRN PRN RECTAL Constipation 03/05/17 13:30 04/04/17 13:29 03/05/17 14:35 Clonidine HCl (Catapres) 0.1 mg Q4H PRN ORAL For High Blood Pressure 03/02/17 22:15 04/01/17 22:14 03/06/17 04:40 Dextrose (Dextrose 50%) STAT PRN IV Hypoglycemia 03/02/17 16:15 04/01/17 16:14 Docusate Sodium (Colace) 250 mg BID ORAL 03/04/17 18:00 04/03/17 17:59 03/11/17 08:52 Heparin Sodium (Porcine) (Heparin 5000 units/ml) 5,000 units EVERY 12 HOURS SUBQ 03/02/17 21:00 04/01/17 20:59 03/10/17 09:34 Insulin Aspart (NovoLOG) BEFORE MEALS AND HS SUBQ 03/02/17 21:00 04/01/17 20:59 03/10/17 06:26 Lisinopril (Prinivil) 40 mg Q12HR ORAL 03/02/17 21:00 04/01/17 20:59 03/11/17 08:52 Magnesium Hydroxide (Mom) 30 ml TID PRN ORAL Constipation 03/03/17 20:00 04/02/17 19:59 03/06/17 00:33 Morphine Sulfate (Morphine Sulfate) 1 mg Q4H PRN IVP Severe Pain (Pain Scale 7-10) 03/09/17 23:45 03/16/17 23:44 03/11/17 04:01 Pantoprazole (Protonix) 40 mg DAILY ORAL 03/03/17 09:00 04/02/17 08:59 03/11/17 08:52 SUDHIR WOOTEN Mar 11, 2017 10:56
--- NOTE | 2017-03-11 17:15 | Consultation ---
DATE OF CONSULTATION: 03/10/2017 PAIN MANAGEMENT CONSULTATION CONSULTING PHYSICIAN: Emely Boss M.D. REFERRING PHYSICIAN: Zachary Wu M.D. REASON FOR CONSULTATION: At the request of Dr. Wu, I am consulting on this patient who has achieved less than optimal analgesia for intractable low back pain. HISTORY OF PRESENT ILLNESS: The patient is an 86-year-old female with a history of multiple medical problems including a history of intractable back pain who was admitted on 03/02/2017 for intractable back pain and gait instability requiring optimized pain management. The patient describes sharp, aching, throbbing pain, radiating from the low back area to the right lower extremity. The pain is present even at rest. It radiates down the right lower extremity to below the knee. She denies groin pain or foot pain at this time. She states that the pain has been progressive x2 weeks following a torsion, twisting movement. She does not recall or sustain a recent trauma or injury. Upon admission, she was unable to bear weight secondary to pain. Pain level was 10/10 on a 0- to 10+ scale. She has a history of having chronic low back pain and has undergone four back surgeries. She states initially she felt better after the back surgery and then her pain returned and became progressive. Pain medications include [place] and morphine sulfate IV. She states she prefers not to take the medication. She has GI upset with codeine, aspirin, and acetaminophen. PAST MEDICAL HISTORY: Significant for hypercholesterolemia, hypertension, gastritis, irritable bowel syndrome, generalized appetite changes, nocturia, osteoarthritis, chronic back pain, back injury, diabetes, and depression. PAST SURGICAL HISTORY: Significant for back surgeries x4 and right total knee arthroplasty. SOCIAL HISTORY: The patient is with children. Retired. Denies tobacco use. Denies ethanol use. Denies illicit drug use. REVIEW OF SYSTEMS: Negative except for in the history of present illness. FAMILY HISTORY: Noncontributory. PHYSICAL EXAMINATION: GENERAL: We have a well-nourished and well-developed elderly female, 57 inches tall, 156 pounds. VITAL SIGNS: Blood pressure is 156/76, heart rate is 76, respiratory rate is 20, and O2 saturation is 94% on room air. Pain level is 7/10 on a 0 to 10 scale. Temperature is 97.7 degrees Fahrenheit taken orally. HEENT: Atraumatic and normocephalic. LUNGS: Clear to auscultation with good air entry. HEART: Regular rate and rhythm. Normal S1 and S2. ABDOMEN: Benign and nontender. Positive bowel sounds in all four quadrants. GENITOURINARY: Deferred. RECTAL: Deferred. BACK: Paraspinous muscle spasms appreciated along the entire spine. Evidence of scoliosis is appreciated. Well-healed postsurgical scar appreciated in the lumbar area. EXTREMITIES: No clubbing, cyanosis, or edema appreciated. Able to move all four extremities.Well-healed post surgical scar on the right patella. NEUROLOGIC: Appropriate affect. Antalgic gait without assistive device. ASSESSMENT AND PLAN: This is an 86-year-old female with intractable low back pain radiating to the right lower extremity requires optimized pain management. Upon reviewing MRI of the LS-spine with Dr. Bone, radiologist, the patient appeared to have multi-level neuroforaminal stenosis with degenerative changes of note at T12-L1 and L1-L2 with resultant spinal stenosis. Suggest lumbar epidural steroid injection under fluoroscopy, hold anticoagulants. The patient should be NPO overnight. Obtain PT and PTT in the morning prior to procedure. Avoid contrast agent secondary to the patient's decreased glomerular filtration rate and possible interaction with metformin. Lumbar epidural steroid injections are usually done approximately two weeks apart, in a series of three. Thank you very much for this consult. I will be very happy to follow this patient with you. Emely Boss M.D. DR: SHRUTI JOB#: [id number] CC: MARGARET
--- NOTE | 2017-03-11 17:45 | Procedure Note ---
DATE OF PROCEDURE: 03/11/2017 SURGEON: Emely Boss M.D. PREPROCEDURE DIAGNOSIS: Degenerative disc disease, lumbar with radiculopathy. POSTPROCEDURE DIAGNOSIS: Degenerative disc disease, lumbar with radiculopathy. PROCEDURE PERFORMED: Lumbar epidural steroid injection under fluoroscopy. PROCEDURE IN DETAIL: The patient was warned of risks, benefits were discussed, questions were answered. This was done with the use of aerial photograph interpreter. This patient indicated that she understood and accepted the risks including those not only involving the risk of that procedure itself, but also those regarding the use of x-ray contrast agent, radiation, nerve damage, bleeding, and . The patient was transported to the radiology suite and placed in the prone position on the fluoroscopic compatible table. The skin over T12-L1 and L1-L2 areas were sterilely prepped and draped in the usual fashion. Spinal elements were visualized from a posterior vantage point using fluoroscopic guidance. The skin over the T12-L1 and L1-L2 areas were anesthetized with 1% lidocaine methylparaben free with a 28-gauge needle. A 17-gauge Tuohy needle was then introduced through the same spaces and advanced with loss of resistance technique to the epidural space. There was no CSF or heme appreciated. The test dose was negative. There is only slight paraesthesia in the area of the patient's pain complaint. Depo-Medrol 40 mg plus 1 mL of 0.25% Marcaine was instilled at each level. The needle was then removed while the tracks were flushed with preservative free normal saline. The patient tolerated the procedures well. She is able to move bilateral lower extremities without problem. There was no residual motor or sensory deficit appreciated. The patient was then transported back to her room on with appropriate instructions for postprocedural followup care. No radiologist was in attendance. Radiological technical assistance only was provided. Emely Boss M.D. DR: SHRUTI JOB#: [id number] CC: MARGARET
[2017-03-12 04:14] VITALS: BP 146/60
[2017-03-12] MEDS: Morphine Sulfate 2mg/ml Inj IVP PRN ×2 (04:42→18:28)
[2017-03-12] MEDS: NovoLOG Insulin Flexpen SUBQ SCH ×4 (06:13→20:54)
--- NOTE | 2017-03-12 07:19 | General Progress Note ---
Assessment/Plan Problem List: (1) Gastroenteritis ICD Codes: K52.9 - Gastroenteritis SNOMED: 72996294 (2) Gait instability ICD Codes: R26.81 - Unsteadiness on feet SNOMED: 07263925, 239734057 (3) Intractable low back pain ICD Codes: M54.5 - Low back pain SNOMED: [id number] Status: stable Assessment/Plan s/p epidural/nerve- pt family aware may not notice improvement for 1 week pain rx dvt/stress ulcer prophylaxis acyclovir for shingles rx pt/ot pt still requiring iv pain meds for pain control. requesting pain injection d/w dtr ada- recommend aru or snf for therapy and pain control Subjective ROS Limited/Unobtainable: No Constitutional: Reports: malaise, weakness HEENT: Reports: no symptoms Cardiovascular: Reports: no symptoms Respiratory: Reports: cough Gastrointestinal/Abdominal: Reports: abdominal pain Genitourinary: Reports: no symptoms Neurologic/Psychiatric: Reports: pre-existing deficit Endocrine: Reports: no symptoms Hematologic/Lymphatic: Reports: no symptoms Allergies: Coded Allergies: SALICYLATES (Verified Allergy, Mild, 04/16/09) ACETAMINOPHEN (Verified Adverse Reaction, Mild, VOMITING, 03/31/12) ASPIRIN (Verified Adverse Reaction, Mild, STOMACH PAIN, 03/31/12) CODEINE (Verified Adverse Reaction, Mild, VOMITING, 03/31/12) All Systems: reviewed and negative except above Subjective s/p lumbar epidural steroids injection. less pain but still requiring iv morphine. [place] ineffective. no nausea or vomiting Objective Last 24 Hour Vital Signs Date Time Temp Pulse Resp B/P Pulse Ox O2 Delivery O2 Flow Rate FiO2 03/12/17 05:12 96.8 03/12/17 04:14 96.8 80 20 146/60 95 Room Air 03/11/17 23:59 97.9 87 18 158/84 97 Room Air 03/11/17 21:04 139/71 03/11/17 19:51 97.7 78 20 139/71 99 Room Air 03/11/17 16:00 98.2 79 20 154/66 94 Room Air 03/11/17 11:57 97.5 83 18 134/68 93 Room Air 03/11/17 08:52 147/82 03/11/17 08:05 97.7 86 18 147/82 97 Room Air Intake and Output 03/11/17 03/12/17 18:59 06:59 # Voids 6 Height (Feet): 4 Height (Inches): 9.00 Weight (Pounds): 156 Objective General Appearance: WD/WN, alert Neck: supple Cardiovascular: normal rate, regular rhythm Respiratory/Chest: chest wall non-tender, lungs clear, normal breath sounds, no respiratory distress Abdomen: normal bowel sounds, non tender, soft, no organomegaly, no mass Edema: no edema noted Arm (L), no edema noted Arm (R), no edema noted Leg (L), no edema noted Leg (R), no edema noted Pedal (L), no edema noted Pedal (R), no edema noted Generalized JONY PALOMARES Mar 12, 2017 07:19
[2017-03-12 08:00] VITALS: BP 142/58
[2017-03-12] MEDS: Lisinopril 20mg tab ORAL SCH ×2 (08:32→20:51)
[2017-03-12] MEDS: Docusate 250mg cap ORAL SCH ×2 (08:44→18:00)
[2017-03-12] MEDS: Norco 10mg/325mg tab ORAL PRN (08:45)
[2017-03-12] MEDS: Milk of Magnesia 30ml Ud ORAL PRN (08:45)
[2017-03-12] MEDS: Heparin 5000 units/ml inj SUBQ SCH ×2 (08:45→20:52)
--- NOTE | 2017-03-12 11:34 | Infectious Diseases Prog Note ---
Assessment/Plan Assessment/Plan antibiotics : none A 1. zoster of leg s/p rx 2. spinal stenosis 3. DM P 1. continue off antivirals Subjective Constitutional: Denies: chills, fever Respiratory: Denies: dry cough, shortness of breath Gastrointestinal/Abdominal: Denies: diarrhea, nausea, vomiting Musculoskeletal: Reports: pain Allergies: Coded Allergies: SALICYLATES (Verified Allergy, Mild, 04/16/09) ACETAMINOPHEN (Verified Adverse Reaction, Mild, VOMITING, 03/31/12) ASPIRIN (Verified Adverse Reaction, Mild, STOMACH PAIN, 03/31/12) CODEINE (Verified Adverse Reaction, Mild, VOMITING, 03/31/12) Objective Vital Signs Last 24 Hour Vital Signs Date Time Temp Pulse Resp B/P Pulse Ox O2 Delivery O2 Flow Rate FiO2 03/12/17 09:44 97.3 03/12/17 08:32 142/58 03/12/17 08:00 97.3 89 21 142/58 93 Room Air 03/12/17 05:12 96.8 03/12/17 04:14 96.8 80 20 146/60 95 Room Air 03/11/17 23:59 97.9 87 18 158/84 97 Room Air 03/11/17 21:04 139/71 03/11/17 19:51 97.7 78 20 139/71 99 Room Air 03/11/17 16:00 98.2 79 20 154/66 94 Room Air 03/11/17 11:57 97.5 83 18 134/68 93 Room Air Height (Feet): 4 Height (Inches): 9.00 Weight (Pounds): 156 Respiratory/Chest: lungs clear Cardiovascular: normal rate, regular rhythm, no gallop/murmur Abdomen: soft, non tender Extremities: no edema Skin: rash - right foot scabbed ANTONELLA GAR Mar 12, 2017 11:34
[2017-03-12 12:00] VITALS: BP 153/70
[2017-03-12 16:19] VITALS: BP_SYST 158; BP_SYST 162; BP_DIAS 61; BP_DIAS 65
[2017-03-12 20:00] VITALS: BP 145/64
[2017-03-13] MEDS: Norco 10mg/325mg tab ORAL PRN (01:02)
[2017-03-13 04:00] VITALS: BP 148/60
[2017-03-13] MEDS: NovoLOG Insulin Flexpen SUBQ SCH ×2 (06:11→11:30)
[2017-03-13 08:20] VITALS: BP 126/59
[2017-03-13] MEDS ORDERED: HYDROCODON-ACE1 EA13 ORAL (08:52)
[2017-03-13] MEDS ORDERED: CLONIDINE0.1 MG ORAL (08:52)
[2017-03-13] MEDS ORDERED: Morphine Sulfate IVP (08:52)
--- NOTE | 2017-03-13 09:45 | Discharge Summary ---
DATE OF ADMISSION: 03/02/2017 DATE OF DISCHARGE: 03/13/2017 ADMISSION DIAGNOSES: 1. Intractable back pain. 2. Hypertension. 3. Hypertensive heart disease. 4. Abdominal pain. DISCHARGE DIAGNOSES: 1. Intractable back pain. 2. Hypertension. 3. Hypertensive heart disease. 4. Abdominal pain. HOSPITAL COURSE: The patient is a very pleasant female, presented with acute onset of lower back pain with associated weakness in the right lower extremity. She underwent a CAT scan and underwent an MRI that showed a mass. The mass was not a tumor, but was an extruded herniated disk. The patient was seen by spine surgery, she required IV pain medications every four hours, orals were unable to alleviate her pain. She was a poor surgical candidate. Pain management consultation for an epidural was obtained, but unfortunately most of the anesthesiologists who perform the procedure were away on vacation, are unavailable. We were able to contact Dr. Boss, after returning was able to do the epidural. The patient tolerated the procedure well. Her pain was somewhat improved, but she did require IV pain medications as she had difficulty ambulating. She will be discharged to acute rehabilitation for therapy for approximately a week. DISCHARGE MEDICATIONS: Please see discharge medication list for discharge medications. DIET: Regular diet. ACTIVITY: Ad-Tanya. FOLLOWUP: The patient will follow up in one to two days at the acute rehabilitation. Zachary Wu M.D. DR: SEBAS JOB#: [id number] CC:
[2017-03-13] MEDS: Docusate 250mg cap ORAL SCH (10:50)
[2017-03-13] MEDS: Lisinopril 20mg tab ORAL SCH (10:50)
[2017-03-13] MEDS: Heparin 5000 units/ml inj SUBQ SCH (10:55)
--- NOTE | 2017-03-13 11:00 | Infectious Diseases Prog Note ---
Assessment/Plan Assessment/Plan antibiotics : none A 1. zoster of leg s/p rx 2. spinal stenosis 3. DM P 1. continue off antivirals 2. d/c planned Subjective ROS Limited/Unobtainable: Yes Allergies: Coded Allergies: SALICYLATES (Verified Allergy, Mild, 04/16/09) ACETAMINOPHEN (Verified Adverse Reaction, Mild, VOMITING, 03/31/12) ASPIRIN (Verified Adverse Reaction, Mild, STOMACH PAIN, 03/31/12) CODEINE (Verified Adverse Reaction, Mild, VOMITING, 03/31/12) Objective Vital Signs Last 24 Hour Vital Signs Date Time Temp Pulse Resp B/P Pulse Ox O2 Delivery O2 Flow Rate FiO2 03/13/17 10:50 126/59 03/13/17 08:20 97.7 91 18 126/59 94 Room Air 03/13/17 04:00 98.1 76 20 148/60 95 Room Air 03/13/17 02:01 98.1 03/12/17 20:51 145/64 03/12/17 20:00 97.9 81 18 145/64 96 Room Air 03/12/17 18:58 97.0 03/12/17 16:19 97.0 78 20 158/65 95 Room Air 03/12/17 12:00 96.6 86 20 153/70 93 Room Air Height (Feet): 4 Height (Inches): 9.00 Weight (Pounds): 156 Respiratory/Chest: lungs clear Cardiovascular: normal rate, regular rhythm, no gallop/murmur Abdomen: soft, non tender Extremities: no edema ANTONELLA GAR Mar 13, 2017 11:00
[2017-03-13 12:11] VITALS: BP 140/62
[2017-03-13] MEDS: Morphine Sulfate 2mg/ml Inj IVP PRN (13:21)
== END 2017-03-13 15:10 | disposition short-term general hospital (02) | DRG 552 ==
LOC: EMR 15:07 → 4W 16:00 → EDBEDREQ 17:44 → 4W 18:54
PROC: 3E0R3BZ Introduction of Anesthetic Agent into Spinal Canal, Percutaneous Approach (ICD-10-PCS; principal; 2017-03-11)
PROC: 3E0R33Z Introduction of Anti-inflammatory into Spinal Canal, Percutaneous Approach (ICD-10-PCS; principal; 2017-03-11)
DX: M51.16 Intervertebral disc disorders with radiculopathy, lumbar region (principal); B02.8 Zoster with other complications; I11.0 Hypertensive heart disease with heart failure; I50.30 Unspecified diastolic (congestive) heart failure; M48.05 Spinal stenosis, thoracolumbar region; E11.9 Type 2 diabetes mellitus without complications; R26.9 Unspecified abnormalities of gait and mobility; M81.0 Age-related osteoporosis without current pathological fracture; E66.9 Obesity, unspecified; Z68.33 Body mass index [BMI] 33.0-33.9, adult; E78.00 Pure hypercholesterolemia, unspecified; K52.9 Noninfective gastroenteritis and colitis, unspecified
CPT/HCPCS: 36415; 62323; 72131; 72146; 72148; 72192; 74176; 77003; 80048; 80053; 82962; 85025; 85610; 85730; J1815

== ENCOUNTER 2017-07-08 15:31 | Outpatient (CLI) | payer MEDICARE, MEDICAID ==
[~2017-07-08 15:31] MED LIST changes: +CLONIDINE0.1 MG ORAL; +HYDROCODON-ACE1 EA13 ORAL; +Morphine Sulfate IVP
--- NOTE | 2017-07-08 16:30 | Diagnostic Imaging Report ---
Indication: Cough Technique: One view of the chest Comparison: none Findings: Body habitus limits evaluation somewhat. Inspiration is suboptimal. The heart size is normal. Aorta is somewhat tortuous. There are atelectatic changes at the left lung base. No significant interim change Impression: Hypoventilatory exam. No definite acute process
== END 2017-07-08 17:31 | disposition home or self-care (01) ==
LOC: RAD 15:31
DX: Z01.818 Encounter for other preprocedural examination (principal); R05 Cough
CPT/HCPCS: 71010

== ENCOUNTER → 2018-10-21 | Outpatient (CLI) | payer MEDICARE, BC ==
--- NOTE | 2018-10-21 16:47 | Diagnostic Imaging Report ---
Indication: Shortness of breath Technique: 2 views of the chest Comparison: 07/08/2017 single view chest Findings: Interim placement of a spinal stimulator. Some atelectatic changes are seen at both lung bases. The lungs and pleural spaces are otherwise clear. Heart size is normal. Surgical changes of the lumbar spine are noted. Impression: No acute process
== END | disposition home or self-care (01) ==
LOC: RAD 15:58
DX: R06.02 Shortness of breath (principal)
CPT/HCPCS: 71046

== ENCOUNTER 2018-12-09 15:27 | Emergency (ER) | payer MEDICARE, MEDICAID ==
[~2018-12-09] VITALS: Ht 149.9 cm; Wt 63.5 kg
--- NOTE | 2018-12-09 15:42 | NUR ---
ED Nurse Note: Patient brought in by her daughter c/o pain on the right elbow, redness and some discharge noted. patient is s/p fall 2 days ago; patient is ambulatory with assistance. Patient is alert awake x4 daughter at bedside breathing unlabored and even
[2018-12-09] MEDS ORDERED: DEXILANT60 MG ORAL (15:43)
[2018-12-09] MEDS: Tetanus/Diptheria/Pertussis IM ONE (16:00)
[2018-12-09 16:18] VITALS: BP 121/72
--- NOTE | 2018-12-09 16:38 | NUR ---
ED Nurse Note: xray called
[2018-12-09] MEDS: Bacitracin Oint UD TOPIC ONE (17:41)
--- NOTE | 2018-12-09 18:01 | Diagnostic Imaging Report ---
EXAM: XR Right Shoulder Complete, 2 or More Views CLINICAL HISTORY: PAIN TECHNIQUE: Two or more views of the right shoulder. COMPARISON: No relevant prior studies available. FINDINGS: Bones/joints: Osteophyte formation to the right glenohumeral and acromioclavicular joints. No acute fracture. No dislocation. Generalized osteopenia Soft tissues: Unremarkable. IMPRESSION: No acute osseous abnormality. Osteoarthrosis of the right glenohumeral and acromioclavicular joints.
--- NOTE | 2018-12-09 18:02 | Diagnostic Imaging Report ---
EXAM: XR Right Elbow Complete, 3 or More Views CLINICAL HISTORY: PAIN TECHNIQUE: Frontal, lateral and oblique views of the right elbow. COMPARISON: No relevant prior studies available. FINDINGS: Bones/joints: Mild osteophyte formation to the medial compartments. No acute fracture. No dislocation. Generalized osteopenia. Soft tissues: Unremarkable. IMPRESSION: No acute osseous abnormality. Mild osteoarthrosis.
[2018-12-09] MEDS ORDERED: BACITRACIN15 GM TOPIC (18:05)
[2018-12-09] MEDS ORDERED: CEPHALEXIN500 MG ORAL (18:05)
--- NOTE | 2018-12-09 18:20 | NUR ---
ER DISCHARGE NOTE: Patient is cleared to be discharged per ERMD Dr. Goins, pt is aox4, on room air, with stable vital signs. pt was given dc and prescription instructions, pt was able to verbalize understanding, pt id band removed without complications. pt is able to ambulate with steady gait. pt took all belongings.
[2018-12-09 18:24] VITALS: BP 121/75
--- NOTE | 2018-12-09 22:10 | Emergency Room Report ---
History of Present Illness General Chief Complaint: General Complaint Source: Patient Present Illness HPI 88-year-old female presents ED for evaluation. Brought in by daughter. Complaining of right shoulder right elbow pain. States she had a trip and fall 2 days ago. Laceration over the right elbow. Tetanus unknown. Pain is dull, 7 out of 10, nonradiating. Denies hitting her head or LOC. No other aggravating relieving factors. Denies any other associated symptoms Allergies: Coded Allergies: SALICYLATES (Verified Allergy, Mild, 04/16/09) ACETAMINOPHEN (Verified Adverse Reaction, Mild, VOMITING, 03/31/12) ASPIRIN (Verified Adverse Reaction, Mild, STOMACH PAIN, 03/31/12) CODEINE (Verified Adverse Reaction, Mild, VOMITING, 03/31/12) Patient History Past Medical History: DM, HTN, GERD Past Surgical History: none Pertinent Family History: none Social History: Denies: smoking, alcohol use, drug use Now: No Immunizations: UTD Reviewed Nursing Documentation: PMH: Agreed; PSxH: Agreed Nursing Documentation-PMH Past Medical History: No History, Except For Hx Hypertension: Yes Hx Diabetes: Yes Hx Cancer: No Hx Gastrointestinal Problems: Yes - GASTRITIS Hx Dialysis: No History Of Psychiatric Problem: No Hx Neurological Problems: No Hx Neurologic Surgery: Yes - BACK SURGERY X4 Review of Systems All Other Systems: negative except mentioned in HPI Physical Exam Vital Signs Date Time Temp Pulse Resp B/P (MAP) Pulse Ox O2 Delivery O2 Flow Rate FiO2 12/09/18 15:38 98.1 85 16 129/81 99 Room Air Sp02 EP Interpretation: reviewed, normal General Appearance: no apparent distress, alert, GCS 15, non-toxic Head: normocephalic Eyes: bilateral eye normal inspection, bilateral eye PERRL ENT: normal ENT inspection Neck: normal inspection Respiratory: normal inspection Cardiovascular #1: normal inspection Gastrointestinal: normal inspection Rectal: deferred Genitourinary: no CVA tenderness Musculoskeletal: tender - R elbow, R shoulder Neurologic: alert, oriented x3, responsive, motor strength/tone normal, sensory intact, speech normal Psychiatric: normal inspection Skin: other - 1cm healing laceration over R elbow, granulation tissue noted. surrounding erythema Lymphatic: normal inspection Medical Decision Making Diagnostic Impression: Primary Impression: Laceration of elbow Qualified Codes: S51.011A - Laceration without foreign body of right elbow, initial encounter Additional Impression: Elbow contusion Qualified Codes: S50.01XA - Contusion of right elbow, initial encounter ER Course Hospital Course 88-year-old female presents with laceration to right elbow with post pain status post fall Differential diagnoses include: Fracture, dislocation, sprain, contusion Clinical course Patient placed on stretcher. After initial history and physical, I ordered tdap , Xrays of R shoulder and elbow X-ray show no acute process. Lacerations 2 days old with granulation tissue noted. No discharge. We are unable to suture discussed with daughter. Care provided. Bacitracin dressing applied. Simón wrap applied to right elbow. Safe for discharge close outpatient follow-up. PMD Dr. Wu informed Diagnosis - laceration of elbow, elbow contusion Stable and discharged to home with prescription for keflex, bacitracin. apply ice, keep elevated. weight bear as tolerated. Followup with PMD. Return to ED if symptoms recur or worsen Other X-Ray Diagnostic Results Other X-Ray Diagnostic Results #1: X-Ray ordered: R shoulder # of Views/Limited Vs Complete: 3 View Indication: Pain EP Interpretation: Yes Interpretation: no dislocation, no soft tissue swelling, no fractures Impression: No acute disease Electronically Signed by: Electronically signed by Bar Goins MD Other X-Ray Diagnostic Results #2: X-Ray ordered: R elbow # of Views/Limited Vs Complete: 3 View Indication: Pain EP Interpretation: Yes Interpretation: no dislocation, no soft tissue swelling, no fractures Impression: No acute disease Electronically Signed by: Electronically signed by Bar Goins MD Last Vital Signs Date Time Temp Pulse Resp B/P (MAP) Pulse Ox O2 Delivery O2 Flow Rate FiO2 12/09/18 18:24 98.1 82 17 121/75 99 Room Air Status: improved Disposition: HOME, SELF-CARE Condition: Stable Scripts Cephalexin* (KEFLEX*) 500 Mg Capsule 500 MG ORAL EVERY 6 HOURS for 7 Days, CAP Prov: Bar Goins MD 12/09/18 Bacitracin (Bacitracin) 28.4 Gm Oint...g. 1 APPLIC TOPIC THREE TIMES A DAY, #28.4 GM Prov: Bar Goins MD 12/09/18 Patient Instructions: Nonsutured Laceration Care Bar Goins MD Dec 09, 2018 22:10
== END 2018-12-09 18:20 | disposition home or self-care (01) ==
LOC: EMR 16:38
DX: S51.011A Laceration without foreign body of right elbow, initial encounter (principal); W01.0XXA Fall on same level from slipping, tripping and stumbling without subsequent striking against object, initial encounter; Y92.89 Other specified places as the place of occurrence of the external cause; Z23 Encounter for immunization; I10 Essential (primary) hypertension; E11.9 Type 2 diabetes mellitus without complications; K21.9 Gastro-esophageal reflux disease without esophagitis; Z88.6 Allergy status to analgesic agent; Z88.5 Allergy status to narcotic agent; M19.021 Primary osteoarthritis, right elbow
CPT/HCPCS: 90471; 90715; 99284

== ENCOUNTER → 2019-03-03 | Outpatient (CLI) | payer MEDICARE, OTHER ==
[~2019-03-03] MED LIST changes: +BACITRACIN15 GM TOPIC; +CEPHALEXIN500 MG ORAL; +DEXILANT60 MG ORAL
--- NOTE | 2019-03-03 16:35 | Diagnostic Imaging Report ---
Indication: Cough Comparison: 10/21/2018 2 views of the chest obtained. Findings: Lung volumes are low. Interstitium of the lungs appear prominent but this is a stable finding. Heart size is also stable. Aorta is mildly ectatic. Spinal stimulation wires noted. Bones are osteopenic. IMPRESSION: No acute disease
== END | disposition home or self-care (01) ==
LOC: RAD 15:24
DX: Z01.818 Encounter for other preprocedural examination (principal); R05 Cough; M85.80 Other specified disorders of bone density and structure, unspecified site
CPT/HCPCS: 71046